=== PATIENT | female | born 1935 | race Caucasian/White ===

== ENCOUNTER 2016-09-12 10:44 | Observation (INO) | payer OTHER ==
--- NOTE | 2016-09-12 11:34 | PDOC ---
History of Present Illness - General History Source: Patient Exam Limitations: No Limitations - History of Present Illness Initial Comments: 09/12/16 11:53 The patient is a 81 year old female, resident of [facility], with a significant past medical history of COPD, former smoker, hypertension, diabetes , and anxiety, who presents to the ER with shortness of breath. As per patient s son, patient has frequently been have anxiety attacks. He states that Dr. Schmid referred them to the ER for admission. Patient cannot attribute a particular reason for the anxiety. Denies being on home oxygen, chest pain, fever, chills, cough, nausea, vomiting, or diarrhea. PCP: Dr. Schmid <Madyson Jones - Last Filed: 09/12/16 14:15> <Jonathan Gomez - Last Filed: 09/12/16 15:53> - General Chief Complaint: Shortness of Breath Stated Complaint: SENT BY PCP FOR ADMISSION NIH Stroke Scale - Last Known Well Date/Time & Onset Date Last Known Well: 09/12/16 Time Last Known Well: 14:00 - Initial Evaluation Level of consciousness: Alert Ask patient the month and their age: Answers one correctly Ask patient to open & close eyes; make fist and let go: Obeys both correctly Best gaze (horizontal eye movement): Normal Visual field testing: No visual field loss Facial paresis (Show teeth/raise eyebrows/close eyes tight): Normal symmetrical movement Motor Function: Left Arm: Normal Motor Function: Right Arm: Normal (extends arm 90 (or 45) degrees for 10 seconds without drift Motor Function: Left Leg: Normal (extends leg 30 degrees for 5 seconds without drift) Motor Function: Right Leg: Normal (extends leg 30 degrees for 5 seconds without drift) Limb Ataxia: No ataxia Sensory(Use pinprick test arms,legs,trunk,face/side to side): Normal Best language (Describe picture, name items, read sentences): No Aphasia Dysarthria (read several words): Mild to moderate slurring of words Extinction and Inattention: No abnormality - Total Score NIH Stroke Scale Score: 2 <Jonathan Gomez - Last Filed: 09/12/16 15:53> tPA Exclusion Checklist 0-3hr - Time Elapsed Date last known well: 09/12/16 Time last known well: 14:00 Elaspsed time: Day(s) and 1 Hour(s) and 51 Minutes - Thrombolytic Therapy Candidate Is the patient eligible for Thrombolytic Therapy?: Yes - Exclusion Criteria 0-3hr SBP greater than 185 or DBP greater than 110mmHg despite tx: No Recent IC/spinal surgery,head trauma or stroke w/in last 3mo: No Hx of previous IC hemorrhage, IC neoplasm, AVM or aneurysm: No Active internal bleeding: No Blding diathesis(low plt ct, inc PTT,INR>1.7 or use of NOAC): No Symptoms suggest subarachnoid hemorrhage: No CT demonstrates multilobar infarct(>1/3 cerebral hemiphere): No Arterial puncture at noncompressible site in previous 7 days: No Blood glucose concentration less than 50mg/dL (2.7mmol/L): No - Relative Exclusion Criteria 0-3h Life expectancy <1yr/severe co-morbid illness/PERIANESTHESIA RN on admit: No : No Patient/family refused: No Rapid improvement: Yes Stroke severity too mild: Yes Recent acute CT (w/in previous 3 months): No Seizure at onset with postictal residual neuro impairments: No Major surgery or serious trauma w/in previous 14 days: No Recent GI or hemorrhage (w/in previous 21 days): No - Ineligibility reason(s) Reasons No tPA given: See reason(s) noted above (symptoms lasted about 1 hour, less than [address] is negative. Back to baseline.) <Jonathan Gomez - Last Filed: 09/12/16 15:53> Past History <Madyson Jones - Last Filed: 09/12/16 14:15> - Past Medical History Anemia: No Asthma: No Cancer: No Cardiac Disorders: Yes (SOB) CVA: No COPD: Yes (USES BI PAP MACHINE) CHF: No Dementia: No Diabetes: Yes (IDDM) GI Disorders: Yes (GERD) Disorders: Yes (STRESS INCONTINENCE) HTN: Yes Hypercholesterolemia: No Liver Disease: No Psychiatric Problems: Yes (ANXIETY DISORDER) Suicide Attempt (Hx): No Seizures: No Thyroid Disease: Yes (HYPO) - Surgical History Abdominal Surgery: Yes (COLON SX x 2) Appendectomy: Yes Cardiac Surgery: No Cholecystectomy: No Lung Surgery: No Neurologic Surgery: No Orthopedic Surgery: Yes (R knee Sx) - Immunization History Td Vaccination: Yes Immunization Up to Date: Yes - Psycho/Social/Smoking Cessation Hx Anxiety: Yes Suicidal Ideation: No Smoking Status: Yes Smoking History: Never smoked Have you smoked in the past 12 months: No Number of Cigarettes Smoked Daily: 0 If you are a former smoker, when did you quit?: 04/25/2011 Information on smoking cessation initiated: No 'Breaking Loose' booklet given: 02/18/15 Hx Alcohol Use: No Drug/Substance Use Hx: No Substance Use Type: None Hx Substance Use Treatment: No <Jonathan Gomez - Last Filed: 09/12/16 15:53> - Past Medical History Allergies/Adverse Reactions: Allergies Allergy/AdvReac Type Severity Reaction Status Date / Time levofloxacin [From Levaquin] Allergy Intermediate Rash Verified 09/12/16 10:54 Penicillins Allergy Mild Verified 09/12/16 10:54 Home Medications: Ambulatory Orders Aripiprazole [Abilify -] 2 mg PO DAILY 12/17/15 Buspirone HCl [Buspar -] 10 mg PO TID 12/17/15 Cholecalciferol (Vitamin D3) [Vitamin D3] 1,000 unit PO DAILY 12/17/15 Insulin (Levemir) [Levemir Vial] 24 unit SQ DAILY 12/17/15 Levothyroxine [Synthroid -] 25 mcg PO DAILY 12/17/15 Melatonin [Melatin] 3 mg PO HS 12/17/15 Multivitamin [Poly-Vitamin] 1 each PO DAILY 12/17/15 Oxybutynin Chloride [Ditropan -] 5 mg PO DAILY 12/17/15 Ranolazine [Ranexa] 500 mg PO BID 12/17/15 Simvastatin [Zocor -] 10 mg PO HS 12/17/15 Albuterol 0.083% Nebulizer Tresa [Ventolin 0.083% Nebulizer Soln -] 1 amp NEB Q4H PRN #0 amp 12/20/15 Alprazolam [Xanax] 0.25 mg PO Q8H PRN #30 tablet MDD 3 12/20/15 Meclizine HCl [Antivert -] 25 mg PO Q6HPO PRN #0 tablet 12/20/15 Omeprazole [Prilosec] 20 mg PO DAILY 01/04/16 Insulin Sliding Scale [Novolog Vial Sliding Scale -] 0 units SQ TIDAC 09/12/16 Mirabegron [Myrbetriq] 25 mg PO DAILY 09/12/16 Paroxetine HCl [Paxil -] 30 mg PO DAILY 09/12/16 Review of Systems - Review of Systems Able to Perform ROS?: Yes Comments:: 09/12/16 11:54 CONSTITUTIONAL: Absent: fever, no chills, no fatigue EYES: Absent: visual changes ENT: Absent: ear pain, no sore throat CARDIOVASCULAR: Absent: chest pain, no palpitations RESPIRATORY: Present: shortness of breath Absent: cough GI: Absent: abdominal pain, no nausea, no vomiting, no constipation, no diarrhea GENITOURINARY: Absent: dysuria, no frequency, no hematuria MUSCULOSKELETAL: Absent: back pain, no arthralgia, no myalgia SKIN: Absent: rash NEURO: Absent: headache <Uts,Madyson - Last Filed: 09/12/16 14:15> *Physical Exam - Vital Signs Last Vital Signs Temp Pulse Resp BP Pulse Ox 97.9 F 75 18 122/74 99 09/12/16 10:53 09/12/16 10:53 09/12/16 10:53 09/12/16 10:53 09/12/16 10:53 - Physical Exam Comments: 09/12/16 11:55 GENERAL: Well-appearing, well-nourished. No apparent distress. HEENT: Normocephalic, atraumatic. PERRL, EOM intact. CARDIOVASCULAR: Normal S1, S2. Regular rate and rhythm. PULMONARY: Clear to auscultation bilaterally. ABDOMEN: Soft, non-distended, non-tender. EXTREMITIES: Normal ROM in all four extremities. No gross deformities. SKIN: Warm, dry. No rash NEUROLOGICAL: No focal neurological deficits. <Uts,Madyson - Last Filed: 09/12/16 14:15> - Vital Signs Last Vital Signs Temp Pulse Resp BP Pulse Ox 97.9 F 75 18 122/74 99 09/12/16 10:53 09/12/16 10:53 09/12/16 10:53 09/12/16 10:53 09/12/16 10:53 <Jonathan Gomez - Last Filed: 09/12/16 15:53> ED Treatment Course - LABORATORY CBC & Chemistry Diagram: 09/12/16 11:55 09/12/16 11:55 <ParadiseevgenyMadyson - Last Filed: 09/12/16 14:15> - LABORATORY CBC & Chemistry Diagram: 09/12/16 11:55 09/12/16 11:55 <Jonathan Gomez - Last Filed: 09/12/16 15:53> Medical Decision Making - Medical Decision Making 09/12/16 13:[address] Osorio (covering for Dr. Schmid) 09/12/16 14:[address] Alcala who will see patient in the ER <Madyson Jones - Last Filed: 09/12/16 14:15> *DC/Admit/Observation/Transfer - Attestations Scribe Attestion: 09/12/16 11:55 Documentation prepared by Madyson Jones, acting as medical physicist for Jonathan Gomez MD, MD/DO. <KarenMadyson - Last Filed: 09/12/16 14:15> - Discharge Dispostion Admit: Yes <Jonathan Gomez - Last Filed: 09/12/16 15:53> Diagnosis at time of Disposition: COPD (chronic obstructive pulmonary disease), Acute confusion, TIA (transient ischemic attack) - Discharge Dispostion Condition at time of disposition: Stable - Referrals Referrals: Bryce Schmid MD [Primary Care Provider] -
[2016-09-12] MEDS ORDERED: LORAZEPAM CARPU-JECT 2 MG/ML DISP.SYRIN IVPUSH ONE (11:52)
[2016-09-12] MEDS ORDERED: LORAZEPAM CARPU-JECT 2 MG/ML DISP.SYRIN ONE (12:12)
[2016-09-12 12:20] LABS: BASOPHIL 0.6 % (0-2.0); EOSINOPHIL 1.2 % (0-4.5); MCH 28.2 pg (25.7-33.7); MCHC 32.7 g/dl (32.0-36.0); MEAN CELL VOLUME 86.1 fl (80-96); MEAN PLT VOLUME 7.4 fl (7.5-11.1); NEUTROPHILS 61.3 % (42.8-82.8); PLATELET COUNT 271 K/MM3 (134-434); RDW 15.1 % (11.6-15.6)
[2016-09-12 12:43] LABS: ALBUMIN 3.7 g/dl (3.4-5.0); ANION GAP 9 (8-16); BILIRUBIN,TOTAL 0.5 mg/dL (0.2-1.0); CO2 23 mmol/L (21-32); CREATININE 1.6 mg/dL (0.55-1.02); GLUCOSE,RANDOM 172 mg/dL (74-106); SGOT/AST 15 U/L (15-37); SGPT/ALT 17 U/L (12-78); TOT PROT 7.4 g/dl (6.4-8.2)
[2016-09-12 12:52] LABS: ALK PHOS 103 U/L (45-117); THYROID STIMULATING HORMONE 1.05 uIU/ml (0.358-3.74); TROPONIN I < 0.02 ng/ml (0.00-0.05)
[2016-09-12 13:33] LABS: ARTERIAL BLD GAS O2 SATURATION 94.5 % (90-98.9); ARTERIAL BLOOD GAS BASE EXCESS -3.6 meq/l (-2-2); ARTERIAL BLOOD GAS PO2 86.3 mmHg (70-100); ARTERIAL BLOOD GAS pH 7.36 (7.35-7.45)
[2016-09-12 13:43] LABS: ALLENS TEST POSITIVE
[2016-09-12 13:44] LABS: ART PUNCT SITE RIGHT RADIAL; LPM/O2% 21%; PT. ON O2? NO; TYPE OF O2 ROOM AIR
[2016-09-12] MEDS ORDERED: ALBUTEROL SO4 0.083% IH SOL 2.5 MG/3 ML VIAL.NEB. NEB PRN (16:35)
[2016-09-12] MEDS ORDERED: MECLIZINE HCL 25 MG TABLET (FP) PO PRN (16:35)
--- NOTE | 2016-09-12 17:26 | HP ---
Admitting History and Physical - Admission History of Present Illness: 81 year old female, resident of [facility], with a significant past medical history of COPD, former smoker, hypertension, diabetes, and anxiety was sent to the ED by Primary Care physician (Dr. Schmid) for nervousness. At time of this evaluation pt states that she has dizziness and weakness of her legs both of which she states is chronic. She has no pain, no SOB, and no other complaints. She states that her memory is bad and she does not remember why or how she ended up at the hospital. She is conversant, oriented to place, and very pleasant (laughing and smiling) - Past Medical History DETECTIVE PRECINCT: Yes: Dementia, Other (ANXIETY DISORDER) Cardiovascular: Yes: HTN Pulmonary: Yes: Asthma, COPD, Other (CLAUDIA) Gastrointestinal: Yes: Other (rectal prolapse) Renal/: Yes: Neurogenic Bladder Heme/Onc: Yes: Anemia Psych: Yes: Anxiety, Depression Musculoskeletal: Yes: Chronic low back pain, Bursitis, Osteoarthritis Rheumatology: Yes: Fibromyalgia Endocrine: Yes: Diabetes Mellitus - Smoking History Smoking history: Never smoked Have you smoked in the past 12 months: No Aproximately how many cigarettes per day: 0 If you are a former smoker, when did you quit?: 04/25/2011 - Alcohol/Substance Use Hx Alcohol Use: No - Social History ADL: Independent Occupation: former hairdresser, pet groomer History of Recent Travel: No Home Medications - Allergies Allergies/Adverse Reactions: Allergies Allergy/AdvReac Type Severity Reaction Status Date / Time levofloxacin [From Levaquin] Allergy Intermediate Rash Verified 09/12/16 10:54 Penicillins Allergy Mild Verified 09/12/16 10:54 - Home Medications Home Medications: Ambulatory Orders Aripiprazole [Abilify -] 2 mg PO DAILY 12/17/15 Buspirone HCl [Buspar -] 10 mg PO TID 12/17/15 Cholecalciferol (Vitamin D3) [Vitamin D3] 1,000 unit PO DAILY 12/17/15 Insulin (Levemir) [Levemir Vial] 24 unit SQ DAILY 12/17/15 Levothyroxine [Synthroid -] 25 mcg PO DAILY 12/17/15 Melatonin [Melatin] 3 mg PO HS 12/17/15 Multivitamin [Poly-Vitamin] 1 each PO DAILY 12/17/15 Oxybutynin Chloride [Ditropan -] 5 mg PO DAILY 12/17/15 Ranolazine [Ranexa] 500 mg PO BID 12/17/15 Simvastatin [Zocor -] 10 mg PO HS 12/17/15 Albuterol 0.083% Nebulizer Tresa [Ventolin 0.083% Nebulizer Soln -] 1 amp NEB Q4H PRN #0 amp 12/20/15 Alprazolam [Xanax] 0.25 mg PO Q8H PRN #30 tablet MDD 3 12/20/15 Meclizine HCl [Antivert -] 25 mg PO Q6HPO PRN #0 tablet 12/20/15 Omeprazole [Prilosec] 20 mg PO DAILY 01/04/16 Insulin Sliding Scale [Novolog Vial Sliding Scale -] 0 units SQ TIDAC 09/12/16 Mirabegron [Myrbetriq] 25 mg PO DAILY 09/12/16 Paroxetine HCl [Paxil -] 30 mg PO DAILY 09/12/16 Family Disease History - Family Disease History Family Disease History: Diabetes: Grandparent, Heart Disease: Father (colon), Mother, Brother, CA: Father Review of Systems - Review of Systems Constitutional: reports: Weakness Eyes: denies: No Symptoms, Blind Spots, Blurred Vision, Double Vision, Eye Pain , Floaters, Photophobia, Recent Change in Vision, Other HENT: denies: No Symptoms, Difficult Swallowing, Ear Discharge, Ear Pain, Epistaxis, Gingival Bleeding, Hearing Loss, Mouth Swelling, Nasal Congestion, Ocular Prosthesis, Throat Pain, Toothache, Ringing in Ears, Other Neck: denies: No Symptoms, Decreased ROM, Lumps, Pain on Movement, Stiffness, Swollen Glands, Tenderness, Other Cardiovascular: denies: No Symptoms, Chest Pain, Edema, Palpitations, Shortness of Breath, Other Respiratory: denies: No Symptoms, Cough, Exercise Intolerance, Hemoptysis, Orthopnea, PND, Snoring, SOB, SOB on Exertion, Wheezing, Other Gastrointestinal: denies: No Symptoms, Abdominal Pain, Bloating, Constipation, Diarrhea, Dysphagia, Indigestion, Melena, Nausea, Rectal Bleeding, Vomiting, Vomiting Blood, Other Genitourinary: denies: No Symptoms, Burning, Discharge, Dysuria, Flank Pain, Frequency, Hematuria, Incontinence, Lesions, Menses, Pain, Testicular Mass, Testicular Pain, Testicular Swelling, Urgency, Vaginal Bleeding, Other Breasts: denies: No Symptoms Reported, See HPI, Breast Implants, Discharge from Nipple, Lumps, Pain, Skin Changes, Other Musculoskeletal: reports: Joint Pain (right shoulder) Integumentary: denies: No Symptoms, Blister, Bruising, Change in Color, Eczema, Erythema, Incision, Lesions, Lump, Pallor, Pruritis, Rash, Wound, Other Neurological: reports: Dizziness, Unsteady Gait, Weakness Hematology/Lymphatic: denies: No Symptoms, Easily Bruised, Excessive Bleeding, Swollen Glands, Other Psychiatric: denies: No Symptoms, Altered Sleep Pattern, Anxiety, Depression, Hallucinations, Panic, Paranoia, Suicidal, Other Physical Examination Vital Signs: Vital Signs Temperature 97.9 F 09/12/16 10:53 Pulse Rate 79 09/12/16 15:40 Respiratory Rate 18 09/12/16 15:40 Blood Pressure 120/70 09/12/16 15:40 O2 Sat by Pulse Oximetry (%) 100 09/12/16 15:40 Constitutional: Yes: Well Nourished, No Distress, Calm Eyes: Yes: WNL, Conjunctiva Clear, EOM Intact HENT: Yes: WNL, Atraumatic, Normocephalic Neck: Yes: WNL, Supple, Trachea Midline Cardiovascular: Yes: WNL, Regular Rate and Rhythm Respiratory: Yes: WNL, Regular, CTA Bilaterally Gastrointestinal: Yes: WNL, Normal Bowel Sounds Musculoskeletal: Yes: WNL Extremities: Yes: WNL Edema: No Integumentary: Yes: WNL Neurological: Yes: WNL, Alert, Oriented ...Motor Strength: WNL Psychiatric: Yes: WNL Labs: CBC, BMP 09/12/16 11:55 09/12/16 11:55 Assessment/Plan 81 year old female, resident of [facility], with a significant past medical history of COPD, former smoker, hypertension, diabetes, and anxiety was sent to the ED by Primary Care physician (Dr. Schmid) for nervousness -vital signs and labs all WNL -creat of 1.6 is similar to pt's baseline -CT head negative for acute changes -EKG shows no ischemic changes and no malignant arrythmias -pt was treated with 1mg ativan IV by ED physician earlier today which is a possible reason why pt feels drousy at this time -admit to observation -to go to Primary Care Physician's service in the AM for further/continued management Visit type - Emergency Visit Emergency Visit: Yes Care time: The patient presented to the Emergency Department on the above date and was hospitalized for further evaluation of their emergent condition. - New Patient This patient is new to me today: Yes Date on this admission: 09/12/16 - Critical Care Critical Care patient: No
[2016-09-12] MEDS ORDERED: ALPRAZolam 0.25 MG TABLET ONE (22:17)
[2016-09-12] MEDS ORDERED: busPIRone HCL 5 MG TABLET ONE (22:18)
[2016-09-12] MEDS: ALPRAZolam 0.25 MG TABLET PO PRN (22:28)
[2016-09-12] MEDS: busPIRone HCL 10 MG TABLET (FP) PO SCH (22:28)
--- NOTE | 2016-09-12 23:42 | EKG ---
Test Reason : Blood Pressure : / mmHG Vent. Rate : 066 BPM Atrial Rate : 066 BPM P-R Int : 126 ms QRS Dur : 098 ms QT Int : 436 ms P-R-T Axes : 044 026 054 degrees QTc Int : 457 ms NORMAL SINUS RHYTHM LOW VOLTAGE QRS INCOMPLETE RIGHT BUNDLE BRANCH BLOCK BORDERLINE ECG WHEN COMPARED WITH ECG OF 04-JAN-2016 04:53, NO SIGNIFICANT CHANGE WAS FOUND Confirmed by CARI SINGH, ERICH ([id number]) on 09/12/2016 11:41:58 PM Referred By: Confirmed By:ERICH ALCALA MD
[2016-09-13] MEDS: RANOLAZINE E.R. 500 MG TABLET (FP) PO SCH ×3 (00:46→22:46)
[2016-09-13 01:29] VITALS: BMI 32.3
[2016-09-13] MEDS: INSULIN SLIDING SCALE (NOVOLOG) 1 VIAL SQ SCH ×3 (06:02→18:11)
[2016-09-13] MEDS: LEVOTHYROXINE NA 25 MCG TABLET (FP) PO SCH (06:11)
[2016-09-13] MEDS: busPIRone HCL 10 MG TABLET (FP) PO SCH ×3 (06:11→22:46)
[2016-09-13] MEDS ORDERED: PARoxetine HCL 10 MG TABLET (FP) PO SCH (10:00)
[2016-09-13] MEDS ORDERED: INSULIN DETEMIR 100 UNITS/ML MDV SQ SCH (10:00)
[2016-09-13] MEDS ORDERED: OXYBUTYNIN CHLORIDE 5 MG TABLET PO SCH (10:00)
[2016-09-13] MEDS ORDERED: PT OWN MED DRAWER 7, Y5N ONE ×2 (10:53→22:41)
[2016-09-13] MEDS: PAROXETINE HCL 20 MG, PAROXETINE HCL 10 MG PO SCH (11:35)
[2016-09-13] MEDS: ARIPiprazole 2 MG TABLET PO SCH (11:36)
--- NOTE | 2016-09-13 12:57 | PN ---
Progress Note (short form) - Note Progress Note: PULMONARY CONSULTATION DICTATED 09/13/16 IMP DYSPNEA SECONDARY TO ANXIETY COPD CONFUSION DM HTN CLAUDIA ACUTE ON CHRONIC KIDNEY DISEASE PLAN INHALED BRONCHODILATORS ANTI-ANXIETY MEDS O2 PRN MONITOR LYTES,RENAL FUNCTION MONITOR BP MONITOR BLOOD SUGARS DR LEON Problem List - Problems (1) Acute confusion Code(s): R41.0 - DISORIENTATION, UNSPECIFIED (2) COPD (chronic obstructive pulmonary disease) Code(s): J44.9 - CHRONIC OBSTRUCTIVE PULMONARY DISEASE, UNSPECIFIED (3) Fibromyalgia Code(s): M79.7 - FIBROMYALGIA (4) Obesity (BMI 30.0-34.9) Code(s): E66.9 - OBESITY, UNSPECIFIED (5) Shortness of breath Code(s): R06.02 - SHORTNESS OF BREATH (6) Anxiety Code(s): F41.9 - ANXIETY DISORDER, UNSPECIFIED (7) Depression Code(s): F32.9 - MAJOR DEPRESSIVE DISORDER, SINGLE EPISODE, UNSPECIFIED (8) Diabetes mellitus Code(s): E11.9 - TYPE 2 DIABETES MELLITUS WITHOUT COMPLICATIONS Qualifiers: Diabetes mellitus type: type 2 Diabetes mellitus complication status: with ketoacidosis Diabetes mellitus complication detail: without coma
[2016-09-13] MEDS: ALPRAZolam 0.25 MG TABLET PO PRN (14:43)
--- NOTE | 2016-09-13 15:16 | CONS ---
DATE OF CONSULTATION: 09/13/2016 REFERRING PHYSICIAN: Rodrigo Ferrera MD The patient is a 81-year-old white female, resident of [facility], known to me from previous office visit as well as hospitalization, with past medical history of COPD, history of tobacco use, hypertension, anxiety, diabetes, transferred to [facility] secondary to increasing shortness of breath and feeling very nervous. In the emergency room, the patient was noted to be short of breath and dyspneic, also she was very anxious. She was administered Ativan. Apparently after the administration of Ativan, she started developing increasing confusion as well as disorientation. She was admitted for further evaluation. She denies any chest pain, palpitations. Denied any nausea, vomiting or diaphoresis. She denies any cough or hemoptysis. Past medical history, again, includes COPD, obstructive sleep apnea, hypertension, anxiety, rectal prolapse, neurogenic bladder, anemia, chronic back pain, bursitis, osteoarthritis, fibromyalgia, and anemia. SOCIAL HISTORY: Tobacco use, quit approximately 15 years ago. No occupational exposures. Former hairdresser. Current medications include Antivert, Abilify, BuSpar, Xanax, albuterol, Ranexa, Ditropan, NovoLog, Levemir, Synthroid, paroxetine. REVIEW OF SYSTEMS: No orthopnea, no PND. Positive mild dyspnea. No chest pain. No palpitation. No nausea, no vomiting. No GI complaints. No lower extremity edema. PHYSICAL EXAMINATION: General: The patient is well developed, well nourished, awake, alert, comfortable, in no acute distress. Vital Signs: She is currently afebrile. Blood pressure 121/53. Respiratory rate is 20. O2 saturation is 97% on room air. HEENT: Normocephalic, atraumatic. Neck: Supple. Heart: Regular, S1, S2. Chest: Clear. Abdomen: Soft. Bowel sounds positive. Extremities: No cyanosis, edema. LABORATORIES: WBC is 8, hemoglobin 10.9, hematocrit 33.5, platelet count 271,000. D-dimer is 337. Blood gas: pH of 7.36, pCO2 of 38, pO2 of 86, bicarbonate 21, saturation of 94.5. Chest x-ray reveals no infiltrates, no effusion. CT scan of the head normal. IMPRESSION: 1. Dyspnea, most likely secondary to anxiety. 2. Chronic obstructive pulmonary disease, clinically stable. She is not in acute exacerbation. 3. Diabetes mellitus. 4. Hypertension. 5. Obstructive sleep apnea, not on CPAP. PLAN: Inhaled bronchodilators, antianxiety medications, monitor blood pressure, monitor blood sugars. DONN LEON M.D. [id number]
[2016-09-13] MEDS ORDERED: ATORVASTATIN CA 10 MG TABLET (FP) PO SCH (22:45)
[2016-09-13] MEDS: PANTOPRAZOLE 20 MG TABLET (FP) PO SCH (22:46)
--- NOTE | 2016-09-13 23:45 | PN ---
Progress Note (short form) - Note Progress Note: No specific complaints today Admits to a multitude of issues if asked like head ache dizziness numbness in the hands, Chest pain etc etc O/E Is forgetful and appears anxious Heart regular Lungs clear Abd soft Ext no edema Vital Signs Period Temp Pulse Resp BP Sys/Liu Pulse Ox Last 24 Hr 97.4 F-98.4 F 74-87 18-24 105-122/51-83 96-98 Current Medications Albuterol Sulfate (Ventolin 0.083% Nebulizer Soln -) 1 amp NEB Q4H PRN PRN Reason: SHORT OF BREATH/WHEEZING Alprazolam (Xanax -) 0.25 mg PO Q8H PRN PRN Reason: ANXIETY Last Admin: 09/13/16 14:43 Dose: 0.25 mg Aripiprazole (Abilify) 2 mg PO DAILY [facility] Last Admin: 09/13/16 11:36 Dose: 2 mg Atorvastatin Calcium (Lipitor -) 10 mg PO [facility] Last Admin: 09/13/16 22:46 Dose: 10 mg Buspirone HCl (Buspar -) 10 mg PO TID [facility] Last Admin: 09/13/16 22:46 Dose: 10 mg Insulin Aspart (Novolog Vial Sliding Scale -) 1 vial SQ TIDAC [facility] PRN Reason: Protocol Last Admin: 09/13/16 18:11 Dose: Not Given Insulin Detemir (Levemir Vial) 24 units SQ [facility] Levothyroxine Sodium (Synthroid -) 25 mcg PO ACBK [facility] Last Admin: 09/13/16 06:11 Dose: 25 mcg Myrbetriq(Mirabegron ) [id number] Med 1 each PO DAILY [facility] Pantoprazole Sodium (Protonix -) 20 mg PO BID [facility] Last Admin: 09/13/16 22:46 Dose: 20 mg Paroxetine HCl 20 mg/ (Paroxetine HCl 10 mg) 30 mg PO DAILY [facility] Last Admin: 09/13/16 11:35 Dose: 30 mg Ranolazine (Ranexa -) 500 mg PO BID [facility] Last Admin: 09/13/16 22:46 Dose: 500 mg Laboratory Results - last 24 hr 09/13/16 09/13/16 09/13/16 05:23 11:55 17:50 POC Glucometer 127 236 149 09/13/16 21:37 POC Glucometer 189 A&P 1.Dementia. Needs OP eval and treatment 2.Anxiety Cont present care. Most of the complaints she admits to is part of anxiety and dementia and is not associated with TIA 3.DM Cont preent care 4.Urge incontinence Cont present care.
[2016-09-14] MEDS: INSULIN SLIDING SCALE (NOVOLOG) 1 VIAL SQ SCH ×2 (06:18→11:13)
[2016-09-14] MEDS ORDERED: PT OWN MED DRAWER 7, Y5N ONE ×4 (06:19→14:42)
[2016-09-14] MEDS: LEVOTHYROXINE NA 25 MCG TABLET (FP) PO SCH (06:21)
[2016-09-14] MEDS: busPIRone HCL 10 MG TABLET (FP) PO SCH ×2 (06:21→14:43)
[2016-09-14] MEDS: ARIPiprazole 2 MG TABLET PO SCH (09:45)
[2016-09-14] MEDS: PAROXETINE HCL 20 MG, PAROXETINE HCL 10 MG PO SCH (09:46)
[2016-09-14] MEDS: RANOLAZINE E.R. 500 MG TABLET (FP) PO SCH (09:47)
[2016-09-14] MEDS: PANTOPRAZOLE 20 MG TABLET (FP) PO SCH (09:47)
[2016-09-14] MEDS ORDERED: MYRBETRIQ 25 MG PO SCH (10:00)
--- NOTE | 2016-09-14 12:44 | PN ---
Progress Note, Physician History of Present Illness: PULMONARY ALERT,NAD,-SOB,-COUGH,-CP - Current Medication List Current Medications: Active Medications Albuterol Sulfate (Ventolin 0.083% Nebulizer Soln -) 1 amp NEB Q4H PRN PRN Reason: SHORT OF BREATH/WHEEZING Alprazolam (Xanax -) 0.25 mg PO Q8H PRN PRN Reason: ANXIETY Last Admin: 09/13/16 14:43 Dose: 0.25 mg Aripiprazole (Abilify) 2 mg PO DAILY [facility] Last Admin: 09/14/16 09:45 Dose: 2 mg Atorvastatin Calcium (Lipitor -) 10 mg PO HS [facility] Last Admin: 09/13/16 22:46 Dose: 10 mg Buspirone HCl (Buspar -) 10 mg PO TID [facility] Last Admin: 09/14/16 06:21 Dose: 10 mg Insulin Aspart (Novolog Vial Sliding Scale -) 1 vial SQ TIDAC [facility] PRN Reason: Protocol Last Admin: 09/14/16 11:13 Dose: 4 units Insulin Detemir (Levemir Vial) 24 units SQ [facility] Levothyroxine Sodium (Synthroid -) 25 mcg PO ACBK [facility] Last Admin: 09/14/16 06:21 Dose: 25 mcg Myrbetriq(Mirabegron ) 41eq-Ppo-Kjrjirify Med 1 each PO DAILY [facility] Last Admin: 09/14/16 09:45 Dose: 1 each Pantoprazole Sodium (Protonix -) 20 mg PO BID [facility] Last Admin: 09/14/16 09:47 Dose: 20 mg Paroxetine HCl 20 mg/ (Paroxetine HCl 10 mg) 30 mg PO DAILY [facility] Last Admin: 09/14/16 09:46 Dose: 30 mg Ranolazine (Ranexa -) 500 mg PO BID [facility] Last Admin: 09/14/16 09:47 Dose: 500 mg - Objective Vital Signs: Vital Signs Temperature 97.9 F 09/14/16 10:00 Pulse Rate 65 09/14/16 10:00 Respiratory Rate 20 09/14/16 10:00 Blood Pressure 113/42 09/14/16 10:00 O2 Sat by Pulse Oximetry (%) 98 09/13/16 21:00 Constitutional: Yes: Well Nourished, Calm Eyes: Yes: WNL HENT: Yes: WNL Neck: Yes: WNL Cardiovascular: Yes: Regular Rate and Rhythm, S1, S2 Respiratory: Yes: CTA Bilaterally Gastrointestinal: Yes: Normal Bowel Sounds, Soft Extremities: Yes: WNL Edema: No Problem List - Problems (1) Acute confusion Code(s): R41.0 - DISORIENTATION, UNSPECIFIED (2) COPD (chronic obstructive pulmonary disease) Code(s): J44.9 - CHRONIC OBSTRUCTIVE PULMONARY DISEASE, UNSPECIFIED (3) Fibromyalgia Code(s): M79.7 - FIBROMYALGIA (4) Obesity (BMI 30.0-34.9) Code(s): E66.9 - OBESITY, UNSPECIFIED (5) Shortness of breath Code(s): R06.02 - SHORTNESS OF BREATH (6) Anxiety Code(s): F41.9 - ANXIETY DISORDER, UNSPECIFIED (7) Depression Code(s): F32.9 - MAJOR DEPRESSIVE DISORDER, SINGLE EPISODE, UNSPECIFIED (8) Diabetes mellitus Code(s): E11.9 - TYPE 2 DIABETES MELLITUS WITHOUT COMPLICATIONS Qualifiers: Diabetes mellitus type: type 2 Diabetes mellitus complication status: with ketoacidosis Diabetes mellitus complication detail: without coma Assessment/Plan IMP DYSPNEA SECONDARY TO ANXIETY COPD STABLE CONFUSION IMPROVED BACK TO BASELINE DM HTN CLAUDIA ACUTE ON CHRONIC KIDNEY DISEASE PLAN INHALED BRONCHODILATORS ANTI-ANXIETY MEDS O2 PRN NO OBJECTION TO DISCHARGE FROM PULMONARY [facility] DR LEON Problem List - Problems (1) Acute confusion Code(s): R41.0 - DISORIENTATION, UNSPECIFIED (2) COPD (chronic obstructive pulmonary disease) Code(s): J44.9 - CHRONIC OBSTRUCTIVE PULMONARY DISEASE, UNSPECIFIED (3) Fibromyalgia Code(s): M79.7 - FIBROMYALGIA (4) Obesity (BMI 30.0-34.9) Code(s): E66.9 - OBESITY, UNSPECIFIED (5) Shortness of breath Code(s): R06.02 - SHORTNESS OF BREATH (6) Anxiety Code(s): F41.9 - ANXIETY DISORDER, UNSPECIFIED (7) Depression Code(s): F32.9 - MAJOR DEPRESSIVE DISORDER, SINGLE EPISODE, UNSPECIFIED (8) Diabetes mellitus Code(s): E11.9 - TYPE 2 DIABETES MELLITUS WITHOUT COMPLICATIONS Qualifiers: Diabetes mellitus type: type 2 Diabetes mellitus complication status: with ketoacidosis Diabetes mellitus complication detail: without coma
--- NOTE | 2016-09-14 12:47 | DS ---
Physical Examination Vital Signs: Vital Signs Temperature 97.9 F 09/14/16 10:00 Pulse Rate 65 09/14/16 10:00 Respiratory Rate 20 09/14/16 10:00 Blood Pressure 113/42 09/14/16 10:00 O2 Sat by Pulse Oximetry (%) 98 09/13/16 21:00 Discharge Summary Reason For Visit: COPD ACUTE CONFUSION TIA Current Active Problems Acute confusion (Acute) COPD (chronic obstructive pulmonary disease) (Acute) Fibromyalgia (Acute) Obesity (BMI 30.0-34.9) (Acute) Shortness of breath (Acute) TIA (transient ischemic attack) (Acute) Condition: Stable - Instructions Diet, Activity, Other Instructions: resume previous diet and activity Referrals: Bryce Schmid MD [Primary Care Provider] - Bruno Alcala MD [Staff Physician] - Disposition: ASSISTED FACILITY - Home Medications Comprehensive Discharge Medication List: Ambulatory Orders Aripiprazole [Abilify -] 2 mg PO DAILY 12/17/15 Buspirone HCl [Buspar -] 10 mg PO TID 12/17/15 Insulin (Levemir) [Levemir Vial] 24 unit SQ HS 12/17/15 Levothyroxine [Synthroid -] 25 mcg PO DAILY 12/17/15 Ranolazine [Ranexa] 500 mg PO BID 12/17/15 Simvastatin [Zocor -] 10 mg PO HS 12/17/15 Albuterol 0.083% Nebulizer Tresa [Ventolin 0.083% Nebulizer Soln -] 1 amp NEB Q4H PRN #0 amp 12/20/15 Omeprazole [Prilosec] 20 mg PO BID 01/04/16 Insulin Sliding Scale [Novolog Vial Sliding Scale -] 5 units SQ TIDAC 09/12/16 Mirabegron [Myrbetriq] 25 mg PO DAILY 09/12/16 Paroxetine HCl [Paxil -] 30 mg PO DAILY 09/12/16 Alprazolam [Xanax] 0.25 mg PO Q8H PRN #0 tablet MDD 1mg 09/14/16 Meclizine HCl [Antivert -] 25 mg PO Q6HPO PRN #0 tablet 09/14/16
[2016-09-14 14:34] VITALS: BP 109/60; PULSE 81; TEMP 98.3
[2016-09-14] MEDS: ALPRAZolam 0.25 MG TABLET PO PRN (14:43)
[2016-09-14] MEDS ORDERED: INSULIN DETEMIR 100 UNITS/ML MDV SQ SCH (22:00)
[2016-09-14] MEDS ORDERED: ATORVASTATIN CA 10 MG TABLET (FP) PO SCH (22:00)
== END 2016-09-14 16:35 ==
LOC: JER 10:44 → J4S 15:54 → UNDOADMOB 15:54 → INTOOBSV 23:47 → OBSVTOIN 23:47 → J4S 09-14 12:42
PROVIDERS: ADMIT Internal Medicine; ATTEND Internal Medicine
DX: R06.02 Shortness of breath (principal); M79.7 Fibromyalgia; F41.9 Anxiety disorder, unspecified; E66.9 Obesity, unspecified; Z68.32 Body mass index [BMI] 32.0-32.9, adult; F32.9 Major depressive disorder, single episode, unspecified; E11.9 Type 2 diabetes mellitus without complications; R41.0 Disorientation, unspecified; I12.9 Hypertensive chronic kidney disease with stage 1 through stage 4 chronic kidney disease, or unspecified chronic kidney disease; N18.9 Chronic kidney disease, unspecified; G47.33 Obstructive sleep apnea (adult) (pediatric); J44.9 Chronic obstructive pulmonary disease, unspecified
CPT/HCPCS: 36415; 36600; 70450-TC; 71010-TC; 80053; 82550; 82803; 83880; 84443; 84484; 85025; 85379; 93005; 93010; 99285-25; G0378

== ENCOUNTER 2016-09-30 19:21 | Emergency (ER) | payer OTHER ==
--- NOTE | 2016-09-30 20:00 | PDOC ---
Medical Decision Making - Medical Decision Making 09/30/16 19:59 agree with care from WEIGHT INSPECTOR Devin *DC/Admit/Observation/Transfer Diagnosis at time of Disposition: Head injury, Fall - Discharge Dispostion Disposition: GROUP HOME FACILITY Condition at time of disposition: Fair - Referrals Referrals: Bryce Schmid MD [Primary Care Provider] - - Patient Instructions Additional Instructions: MOTRIN OR TYLENOL FOR PAIN NEEDED. CONTINUE DAILY ACTIVITY TOLERATED. FOLLOW UP WITH YOUR DOCTOR. Print Language: SWEDISH
[2016-09-30 20:03] VITALS: BP 135/74; PULSE 79; TEMP 97.5; BMI 32.4
--- NOTE | 2016-09-30 20:53 | PDOC ---
History of Present Illness - General Chief Complaint: Injury Stated Complaint: FALL Time Seen by Provider: 09/30/16 19:57 History Source: Patient, Fdc Records Exam Limitations: No Limitations - History of Present Illness Initial Comments: 09/30/16 20:48 81yo Female patient from [facility] c/o fall. Patient states while ambulating in [place] with walker, she lost her balance falling backward hitting her head. Neg LOC. + Neck pain, Lt thigh, Head pain. She denies n/v/d, confusion , disorientation, back pain, abd pain, CP, diff breathing, or any other complaints. Associated chronic dizziness and currently on Meclizine. Occurred: reports: this evening Severity: reports: mild Pain Location: reports: head, lower extremity (Lt Hip & Thigh), neck. denies: abdomen, back, pelvis Method of Injury: Yes: fall Modifying Factors: improves with: None Loss of Consciousness: no loss of consciousness Associated Symptoms (Fall): dizziness Past History - Travel Traveled outside of the country in the last 30 days: No Close contact w/someone who was outside of country & ill: No - Past Medical History Allergies/Adverse Reactions: Allergies Allergy/AdvReac Type Severity Reaction Status Date / Time levofloxacin [From Levaquin] Allergy Intermediate Rash Verified 09/30/16 20:03 Penicillins Allergy Mild Verified 09/30/16 20:03 Home Medications: Ambulatory Orders Aripiprazole [Abilify -] 2 mg PO DAILY 12/17/15 Buspirone HCl [Buspar -] 10 mg PO TID 12/17/15 Insulin (Levemir) [Levemir Vial] 24 unit SQ HS 12/17/15 Levothyroxine [Synthroid -] 25 mcg PO DAILY 12/17/15 Ranolazine [Ranexa] 500 mg PO BID 12/17/15 Simvastatin [Zocor -] 10 mg PO HS 12/17/15 Albuterol 0.083% Nebulizer Tresa [Ventolin 0.083% Nebulizer Soln -] 1 amp NEB Q4H PRN #0 amp 12/20/15 Omeprazole [Prilosec] 20 mg PO BID 01/04/16 Insulin Sliding Scale [Novolog Vial Sliding Scale -] 5 units SQ TIDAC 09/12/16 Mirabegron [Myrbetriq] 25 mg PO DAILY 09/12/16 Paroxetine HCl [Paxil -] 30 mg PO DAILY 09/12/16 Alprazolam [Xanax] 0.25 mg PO Q8H PRN #0 tablet MDD 1mg 09/14/16 Meclizine HCl [Antivert -] 25 mg PO Q6HPO PRN #0 tablet 09/14/16 Anemia: No Asthma: No Cancer: No Cardiac Disorders: Yes (SOB) CVA: No COPD: Yes CHF: No Dementia: No Diabetes: Yes (IDDM) GI Disorders: Yes (GERD) Disorders: Yes (STRESS INCONTINENCE) HTN: Yes Hypercholesterolemia: Yes Liver Disease: No Psychiatric Problems: Yes (ANXIETY DISORDER) Suicide Attempt (Hx): No Seizures: No Thyroid Disease: Yes (HYPO) - Surgical History Abdominal Surgery: Yes Appendectomy: Yes Cardiac Surgery: No Cholecystectomy: No Lung Surgery: No Neurologic Surgery: No Orthopedic Surgery: Yes (R knee Sx) - Immunization History Td Vaccination: Yes Immunization Up to Date: Yes - Psycho/Social/Smoking Cessation Hx Anxiety: No Suicidal Ideation: No Smoking Status: Yes Smoking History: Former smoker Have you smoked in the past 12 months: No Number of Cigarettes Smoked Daily: 0 If you are a former smoker, when did you quit?: 2010 Information on smoking cessation initiated: No 'Breaking Loose' booklet given: 02/18/15 Hx Alcohol Use: No Drug/Substance Use Hx: No Substance Use Type: None Hx Substance Use Treatment: No Trauma Specific PMHX - Complaint Specific PMHX Arthritis: No Back Injury: No Neck Injury: Yes Hx Sacro Iliac Joint Dysfunction: No Review of Systems - Review of Systems Able to Perform ROS?: Yes Is the patient limited Romanian proficient: No Constitutional: No: Chills, Fever, Night Sweats, Weakness HEENTM: No: Blurred Vision, Double Vision, Nose Congestion Respiratory: No: Cough, Orthopnea, Shortness of Breath, Stridor, Wheezing Cardiac (ROS): No: Chest Pain, Edema, Chest Tightness ABD/GI: No: Constipated, Diarrhea, Nausea, Poor Appetite, Rectal Bleeding, Vomiting : No: Burning, Dysuria, Discharge, Frequency, Flank Pain, Hematuria, Pain Musculoskeletal: Yes: Neck Pain, Other (Head Injury). No: Back Pain Integumentary: No: Dryness, Erythema, Rash, Sweating Neurological: Yes: Dizziness (Chronic). No: Headache, Seizure, Tingling, Tremors, Weakness, Ataxia Psychiatric: Yes: Anxiety. No: Depression All Other Systems: Reviewed and Negative *Physical Exam - Vital Signs Last Vital Signs Temp Pulse Resp BP Pulse Ox 97.5 F L 79 18 135/74 98 09/30/16 19:57 09/30/16 19:57 09/30/16 19:57 09/30/16 19:57 09/30/16 19:57 - Physical Exam General Appearance: Yes: Nourished, Appropriately Dressed. No: Apparent Distress, Mild Distress, Moderate Distress, Severe Distress HEENT: positive: EOMI, MARYANNE, Normal ENT Inspection, Normal Voice, Symmetrical, TMs Normal, Pharynx Normal. negative: Nasal Congestion, Rhinorrhea, TM Bulging , TM Dull, TM Erythema, Excessive drooling Neck: positive: Tender (Midline tenderness on palpation. ROM WNL), Trachea midline, Supple. negative: Rigid Respiratory/Chest: positive: Lungs Clear, Normal Breath Sounds. negative: Respiratory Distress, Accessory Muscle Use, Labored Respiration, Rapid RR Cardiovascular: positive: Regular Rhythm, Regular Rate. negative: JVD, Murmur Gastrointestinal/Abdominal: positive: Normal Bowel Sounds, Soft. negative: Tender Musculoskeletal: positive: Normal Inspection, Other (Hematoma to Occipital region of scalp). negative: CVA Tenderness, CVA Tenderness (R), CVA Tenderness (L) Extremity: positive: Normal Capillary Refill, Normal Inspection, Normal Range of Motion, Tender (Lt hip and thigh. Decreased/Limited ROM), Pelvis Stable Integumentary: positive: Normal Color, Dry, Warm Neurologic: positive: histology technician II-XII NML intact, Fully Oriented, Alert, Normal Mood/ Affect, Normal Response, Motor Strength 5/5 ED Treatment Course - RADIOLOGY Radiology Studies Ordered: Category Date Time Status CERVICAL SPINE CT W/O CONTR [CT] Stat CT Scan 09/30/16 20:[address] WITHOUT CONTRAST [CT] Stat CT Scan 09/30/16 20:32 Ordered FEMUR-LEFT [RAD] Stat Radiology 09/30/16 20:32 Ordered HIP-LEFT [RAD] Stat Radiology 09/30/16 20:32 Ordered Progress Note - Progress Note Progress Note: ALL RADIOLOGICAL STUDIES COMPLETED AND NORMAL. WILL D/C BACK TO [facility]. *DC/Admit/Observation/Transfer Diagnosis at time of Disposition: Injury of head Qualifiers: Encounter type: initial encounter Qualified Code(s): S09.90XA - Unspecified injury of head, initial encounter Fall Qualifiers: Encounter type: initial encounter Qualified Code(s): W19.XXXA - Unspecified fall, initial encounter - Discharge Dispostion Disposition: LONG TERM FACILITY Condition at time of disposition: Fair - Patient Instructions Additional Instructions: MOTRIN OR TYLENOL FOR PAIN NEEDED. CONTINUE DAILY ACTIVITY TOLERATED. FOLLOW UP WITH YOUR DOCTOR. Print Language: SPANISH
== END 2016-10-01 00:56 ==
LOC: JER 19:21
DX: S09.90XA Unspecified injury of head, initial encounter (principal); W18.30XA Fall on same level, unspecified, initial encounter; Y93.9 Activity, unspecified; Y92.9 Unspecified place or not applicable; Y99.9 Unspecified external cause status; Z99.89 Dependence on other enabling machines and devices; Z79.4 Long term (current) use of insulin; I10 Essential (primary) hypertension; F41.9 Anxiety disorder, unspecified; J44.9 Chronic obstructive pulmonary disease, unspecified; E11.9 Type 2 diabetes mellitus without complications; E07.9 Disorder of thyroid, unspecified; Z87.891 Personal history of nicotine dependence
CPT/HCPCS: 70450-TC; 72125-TC; 73502-TC-LT; 73552-TC-LT; 99281-25

== ENCOUNTER 2016-10-15 17:12 | Inpatient (IN) | payer OTHER ==
--- NOTE | 2016-10-15 17:26 | PDOC ---
History of Present Illness - General History Source: Patient Exam Limitations: No Limitations - History of Present Illness Timing/Duration: other (today) Severity: moderate Modifying Factors: improves with: movement Associated Symptoms: reports: shortness of breath. denies: chest pain, cough, diaphoresis, fever/chills, headaches, loss of appetite, malaise, nausea/vomiting , seizure, syncope, weakness <Jonathan Gomez - Last Filed: 10/15/16 19:46> <Marge Mott - Last Filed: 10/15/16 20:30> - General Chief Complaint: Injury Stated Complaint: FALL Past History - Travel Traveled outside of the country in the last 30 days: No Close contact w/someone who was outside of country & ill: No - Past Medical History Anemia: No Asthma: No Cancer: No Cardiac Disorders: Yes (SOB) CVA: No COPD: Yes CHF: No Dementia: No Diabetes: Yes (IDDM) GI Disorders: Yes (GERD) Disorders: Yes (STRESS INCONTINENCE) HTN: Yes Hypercholesterolemia: Yes Liver Disease: No Psychiatric Problems: Yes (ANXIETY DISORDER) Suicide Attempt (Hx): No Seizures: No Thyroid Disease: Yes (HYPO) - Surgical History Abdominal Surgery: Yes Appendectomy: Yes Cardiac Surgery: No Cholecystectomy: No Lung Surgery: No Neurologic Surgery: No Orthopedic Surgery: Yes (R knee Sx) - Immunization History Td Vaccination: Yes Immunization Up to Date: Yes - Psycho/Social/Smoking Cessation Hx Anxiety: No Suicidal Ideation: No Smoking Status: Yes Smoking History: Former smoker Have you smoked in the past 12 months: No Number of Cigarettes Smoked Daily: 0 If you are a former smoker, when did you quit?: 2010 'Breaking Loose' booklet given: 02/18/15 Hx Alcohol Use: No Drug/Substance Use Hx: No Substance Use Type: None Hx Substance Use Treatment: No <Jonathan Gomez - Last Filed: 10/15/16 19:46> <Marge Mott - Last Filed: 10/15/16 20:30> - Past Medical History Allergies/Adverse Reactions: Allergies Allergy/AdvReac Type Severity Reaction Status Date / Time levofloxacin [From Levaquin] Allergy Unknown Rash Verified 10/15/16 17:30 Penicillins Allergy Unknown Verified 10/15/16 17:31 Home Medications: Ambulatory Orders Aripiprazole [Abilifbernadine -] 2 mg PO DAILY 12/17/15 Buspirone HCl [Buspar -] 10 mg PO TID 12/17/15 Insulin (Levemir) [Levemir Vial] 26 unit SQ HS 12/17/15 Levothyroxine [Synthroid -] 25 mcg PO DAILY 12/17/15 Ranolazine [Ranexa] 500 mg PO BID 12/17/15 Albuterol 0.083% Nebulizer Tresa [Ventolin 0.083% Nebulizer Soln -] 1 amp NEB Q4H PRN #0 amp 12/20/15 Omeprazole [Prilosec] 20 mg PO BID 01/04/16 Insulin Sliding Scale [Novolog Vial Sliding Scale -] 5 units SQ TIDAC 09/12/16 Paroxetine HCl [Paxil -] 30 mg PO DAILY 09/12/16 Alprazolam [Xanax] 0.25 mg PO Q8H PRN #0 tablet MDD 1mg 09/14/16 Meclizine HCl [Antivert -] 25 mg PO Q6HPO PRN #0 tablet 09/14/16 Atorvastatin Ca [Lipitor] 20 mg PO HS 10/15/16 Doxycycline Hyclate 100 mg PO BID 10/15/16 Oxybutynin Chloride [Oxybutynin Chloride ER] 15 mg PO DAILY 10/15/16 Review of Systems - Review of Systems Able to Perform ROS?: Yes Is the patient limited Haitian proficient: No Constitutional: No: Chills, Diaphoresis, Fever, Loss of Appetite, Malaise, Night Sweats, Weakness, Weight Stable, Unintentional Wgt. Loss HEENTM: Yes: See HPI. No: Recent change in vision, Double Vision, Nose Congestion Respiratory: Yes: Shortness of Breath, Other (chronic with copd) Cardiac (ROS): No: Chest Pain, Edema, Irregular Heart Rate, Lightheadedness, Palpitations, Syncope, Chest Tightness ABD/GI: No: Abdominal Distended, Abd. Pain w/ defecation, Blood Streaked Bowels , Difficulty Swallowing, Nausea : No: Burning, Dysuria, Discharge, Frequency Integumentary: No: Bruising, Change in Color Neurological: Yes: Unsteady Gait, Ataxia. No: Headache, Numbness, Paresthesia, Seizure, Tingling, Tremors, Weakness, Dizziness Psychiatric: No: Anxiety, Depression, Frequent Crying, Stressors Endocrine: No: Intolerance to Cold, Intolerance to Heat Hematologic/Lymphatic: No: Anemia, Blood Clots, Easy Bleeding, Easy Bruising <Jonathan Gomez - Last Filed: 10/15/16 19:46> *Physical Exam - Physical Exam General Appearance: Yes: Appropriately Dressed, Apparent Distress HEENT: positive: EOMI, MARYANNE, Normal ENT Inspection, Normal Voice, Symmetrical Neck: positive: Trachea midline, Normal Thyroid, Supple. negative: Decreased range of motion, Lymphadenopathy (L), Rigidity, Tender lateral, Tender midline Respiratory/Chest: positive: Lungs Clear, Normal Breath Sounds, Decreased Breath Sounds. negative: Accessory Muscle Use, Labored Respiration, Rapid RR Cardiovascular: positive: Regular Rhythm, Regular Rate Gastrointestinal/Abdominal: positive: Normal Bowel Sounds, Flat, Soft. negative : Pulsatile Mass Extremity: positive: Normal Capillary Refill, Other (swelling over the right olecranon with some ecchymosis, unable to move elbow due to pain, no wrist drop , sensation is intact and good grasp) Integumentary: positive: Dry, Warm Neurologic: positive: gas desulfurizer II-XII NML intact, Fully Oriented, Normal Mood/Affect , Motor Strength 5/5 <Jonathan Gomez - Last Filed: 10/15/16 19:46> - Vital Signs Last Vital Signs Temp Pulse Resp BP Pulse Ox 97.8 F 71 20 134/63 100 10/15/16 17:31 10/15/16 19:35 10/15/16 19:35 10/15/16 19:35 10/15/16 19:35 <Marge Mott - Last Filed: 10/15/16 20:30> ED Treatment Course - LABORATORY CBC & Chemistry Diagram: 10/15/16 17:49 10/15/16 17:49 <Jonathan Gomez - Last Filed: 10/15/16 19:46> - LABORATORY CBC & Chemistry Diagram: 10/15/16 17:49 10/15/16 17:49 - ADDITIONAL ORDERS Additional order review: Laboratory Results 10/15/16 17:49 Sodium 139 Potassium 4.5 Chloride 103 Carbon Dioxide 25 Anion Gap 11 BUN 33 H Creatinine 1.6 H Creat Clearance w eGFR 31.09 Random Glucose 181 H Calcium 9.3 Total Bilirubin 0.3 D AST 15 ALT 14 Alkaline Phosphatase 89 Total Protein 7.2 Albumin 3.6 10/15/16 17:49 RBC 3.76 MCV 86.2 MCHC 32.9 RDW 15.3 MPV 7.8 Neutrophils % 66.0 Lymphocytes % 22.3 Monocytes % 9.5 Eosinophils % 0.9 Basophils % 1.3 - Medications Given in the ED: ED Medications Discontinued Medications Generic Name Dose Route Start Last Admin Trade Name Guevara PRN Reason Stop Dose Admin Morphine Sulfate 2 mg 10/15/16 17:57 10/15/16 18:05 Morphine Injection - IVPUSH 10/15/16 17:58 2 mg ONCE ONE Administration Morphine Sulfate 4 mg 10/15/16 19:09 10/15/16 19:35 Morphine Injection - IVPUSH 10/15/16 19:10 4 mg ONCE ONE Administration Oxycodone/Acetaminophen 1 combo 10/15/16 17:32 10/15/16 18:06 Percocet 5/325 - PO 10/15/16 17:33 Not Given ONCE ONE <Marge Mott - Last Filed: 10/15/16 20:30> Medical Decision Making - Medical Decision Making 10/15/16 20:[address] Schmid at at 19:20. Referred to answering service, awaiting callback. Dr. Osorio, covering for Dr. Schmid, returned call at 19:27. Case discussed, Dr. Osorio requests the patient be admitted under Dr. Christianson. Called Dr. Mcgovern at at 19:25. Referred to answering service, awaiting callback. Dr. Eduardo, covering for Dr. Mcgovern, returned call at 19:35, case discussed. <Marge Mott - Last Filed: 10/15/16 20:30> *DC/Admit/Observation/Transfer - Discharge Dispostion Admit: Yes <Jonathan Gomez - Last Filed: 10/15/16 19:46> - Attestations Scribe Attestion: 10/15/16 20:26 Documentation prepared by Marge Mott, acting as medical center director for Jonathan Gomez MDMD/DO. <Marge Mott - Last Filed: 10/15/16 20:30> Diagnosis at time of Disposition: Fracture of olecranon process, right, closed - Discharge Dispostion Condition at time of disposition: Guarded - Referrals Referrals: Bryce Schmid MD [Primary Care Provider] -
[2016-10-15] MEDS ORDERED: OXYCODONE/APAP 5/325MG COMBO TABLET PO ONE (17:32)
[2016-10-15] MEDS ORDERED: morphine CARPU-JECT 2 MG/1 ML DISP.SYRIN IVPUSH ONE (17:57)
[2016-10-15] MEDS ORDERED: morphine CARPU-JECT 2 MG/1 ML DISP.SYRIN ONE (17:57)
[2016-10-15 18:03] LABS: BASOPHIL 1.3 % (0-2.0); EOSINOPHIL 0.9 % (0-4.5); MCH 28.4 pg (25.7-33.7); MCHC 32.9 g/dl (32.0-36.0); MEAN CELL VOLUME 86.2 fl (80-96); MEAN PLT VOLUME 7.8 fl (7.5-11.1); PLATELET COUNT 258 K/MM3 (134-434); RDW 15.3 % (11.6-15.6); WHITE BLOOD COUNT 7.4 K/mm3 (4.0-10.0)
[2016-10-15 18:34] LABS: ALBUMIN 3.6 g/dl (3.4-5.0); BILIRUBIN,TOTAL 0.3 mg/dL (0.2-1.0); CALCIUM 9.3 mg/dL (8.5-10.1); CREATININE 1.6 mg/dL (0.55-1.02); TOT PROT 7.2 g/dl (6.4-8.2)
[2016-10-15] MEDS ORDERED: morphine CARPU-JECT 4 MG/1 ML DISP.SYRIN IVPUSH ONE (19:09)
[2016-10-15] MEDS ORDERED: morphine CARPU-JECT 4 MG/1 ML DISP.SYRIN ONE (19:28)
[2016-10-15 20:27] LABS: INR 1.12 (0.82-1.09); PROTHROMBIN TIME (PATIENT) 12.4 SEC (9.98-11.88)
[2016-10-16] MEDS ORDERED: oxyCODONE HCL 5 MG TABLET PO PRN ×2 (00:40→13:56)
[2016-10-16] MEDS ORDERED: ACETAMINOPHEN 325 MG TABLET (FP) PO PRN ×2 (00:40→13:56)
[2016-10-16] MEDS ORDERED: HYDROmorphone HCL CARPU-JECT 1 MG/1 ML DISP.SYRIN IVPB PRN (00:41)
[2016-10-16] MEDS ORDERED: ALPRAZolam 0.25 MG TABLET PO PRN ×2 (00:42→13:56)
[2016-10-16] MEDS ORDERED: SODIUM CHLORIDE 0.45% 1,000 ML IV SCH ×2 (00:45→13:56)
[2016-10-16] MEDS ORDERED: ALBUTEROL SO4 0.083% IH SOL 2.5 MG/3 ML VIAL.NEB. NEB PRN ×2 (01:58→13:56)
[2016-10-16 02:11] VITALS: BMI 28.7
[2016-10-16] MEDS ORDERED: LEVOTHYROXINE NA 25 MCG TABLET (FP) PO SCH (07:00)
--- NOTE | 2016-10-16 08:08 | PN ---
Progress Note (short form) - Note Progress Note: Ortho a/p- right displaced olecranon fx OR for right olecranon orif NPO surgical clearance full consult dictated
--- NOTE | 2016-10-16 08:35 | CONS ---
DATE OF CONSULTATION: 10/16/2016 ORTHOPEDIC CONSULTATION: Patient is a 81-year-old female status post mechanical slip and fall landing on her right elbow complaining of pain and inability to move her right elbow. No numbness and tingling. PAST MEDICAL HISTORY: Significant for a right rotator cuff tear previously on the same limb. PHYSICAL EXAMINATION: She has abrasion over her olecranon, but she does have obvious gap over the proximal ulna. No active extension of the elbow. Flexion is good as is pronation, supination. Intact ulnar, medial, radial sensation and motor. 2+ pulses. Neurovascularly intact. IMAGING: X-rays show a displaced right olecranon fracture. IMPRESSION: Displaced right olecranon fracture. PLAN: Open reduction internal fixation will be booked for later today once medically optimized. JHON MARIA M.D. [id number]
[2016-10-16] MEDS ORDERED: ARIPiprazole 2 MG TABLET PO SCH (10:00)
[2016-10-16] MEDS ORDERED: PAROXETINE HCL 20 MG, PAROXETINE HCL 10 MG PO SCH (10:00)
[2016-10-16] MEDS ORDERED: RANOLAZINE E.R. 500 MG TABLET (FP) PO SCH ×2 (10:00→22:00)
--- NOTE | 2016-10-16 11:10 | EKG ---
Test Reason : Blood Pressure : / mmHG Vent. Rate : 068 BPM Atrial Rate : 068 BPM P-R Int : 136 ms QRS Dur : 112 ms QT Int : 446 ms P-R-T Axes : 056 009 051 degrees QTc Int : 474 ms NORMAL SINUS RHYTHM INCOMPLETE RIGHT BUNDLE BRANCH BLOCK CANNOT RULE OUT INFERIOR INFARCT , AGE UNDETERMINED CANNOT RULE OUT ANTERIOR INFARCT , AGE UNDETERMINED ABNORMAL ECG WHEN COMPARED WITH ECG OF 12-SEP-2016 12:12, NO SIGNIFICANT CHANGE WAS FOUND Confirmed by ARY HOLT MD ([id number]) on 10/16/2016 11:10:05 AM Referred By: Confirmed By:ARY HOLT MD
[2016-10-16] MEDS ORDERED: HYDROmorphone HCL CARPU-JECT 1 MG/1 ML DISP.SYRIN IVPUSH PRN ×2 (11:42→13:56)
[2016-10-16] MEDS ORDERED: PROPOFOL 20 ML ONE (11:51)
[2016-10-16] MEDS ORDERED: ROCURONIUM BROMIDE 50 MG/5 ML VIAL ONE ×2 (11:52)
[2016-10-16] MEDS ORDERED: MIDAZOLAM HCL 2 MG/2 ML SINGLE DOSE VIAL ONE (11:52)
[2016-10-16] MEDS ORDERED: CLINDAMYCIN PHOSPHATE 600 MG/4 ML VIAL IVPB ONE (12:25)
[2016-10-16] MEDS ORDERED: LIDOCAINE HCL/PF 2% SDV 5ML VIAL ONE (12:37)
[2016-10-16] MEDS ORDERED: CLINDAMYCIN PHOSPHATE 600 MG/4 ML VIAL ONE (12:37)
--- NOTE | 2016-10-16 13:29 | OP ---
Operative Note - Note: Operative Date: 10/16/16 ([facility]) Pre-Operative Diagnosis: right displaced olecranon fx Operation: right olecranon orif Post-Operative Diagnosis: Same as Pre-op Surgeon: Bryce Eduardo Manager Statistics: Jeff Mcduffie Anesthesiologist/CUTTER MACHINE: Fern Hall MD Anesthesia: General Estimated Blood Loss (mls): 25 Operative Report Dictated: Yes
[2016-10-16] MEDS ORDERED: HYDROmorphone HCL CARPU-JECT 2 MG/1 ML DISP.SYRIN ONE (15:21)
--- NOTE | 2016-10-16 17:00 | HP ---
Admitting History and Physical - Primary Care Physician PCP: Bryce Schmid - Admission Chief Complaint: Unable to obtain History of Present Illness: Ms Frazier is a 81 year old female who comes in with a fall and a olencranon fracture. I am seeing the patient after surgery so unable to obtain any history. ER note has no history recorded at this time so history is obtained from ambulance note and consultation. Ms Frazier was at [facility] and has history of attempting to ambulate without assistance. She got out of bed and had an unwitnessed fall. She was found on the ground and ambulance was called. She was brought in for further evaluation. She was seen by ortho and taken to the OR for ORIF. She appears to tolerate this well. I am seeing her immediately post op for the first time. Currently she is still sedated but arousable with loud voice. However unable to obtain history secondary to dementia and anesthesia. History Source: Medical Record Limitations to Obtaining History: Clinical Condition, Dementia - Past Medical History CREDIT PORTFOLIO MANAGER: Yes: Dementia, Other (ANXIETY DISORDER) Cardiovascular: Yes: HTN Pulmonary: Yes: Asthma, COPD, Other (CLAUDIA) Gastrointestinal: Yes: Other (rectal prolapse) Renal/: Yes: Neurogenic Bladder Heme/Onc: Yes: Anemia Psych: Yes: Anxiety, Depression Musculoskeletal: Yes: Chronic low back pain, Bursitis, Osteoarthritis Rheumatology: Yes: Fibromyalgia Endocrine: Yes: Diabetes Mellitus - Past Surgical History Additional Past Surgical History: ORIF - Smoking History Smoking history: Former smoker Have you smoked in the past 12 months: No Aproximately how many cigarettes per day: 0 If you are a former smoker, when did you quit?: 2010 - Alcohol/Substance Use Hx Alcohol Use: No - Social History Usual Living Arrangement: Yes: [facility] ADL: Support Services Occupation: former hairdresser, undergraduate intern History of Recent Travel: No Home Medications - Allergies Allergies/Adverse Reactions: Allergies Allergy/AdvReac Type Severity Reaction Status Date / Time levofloxacin [From Levaquin] Allergy Unknown Rash Verified 10/15/16 17:30 Penicillins Allergy Unknown Verified 10/15/16 17:31 - Home Medications Home Medications: Ambulatory Orders Aripiprazole [Abilify -] 2 mg PO DAILY 12/17/15 Buspirone HCl [Buspar -] 10 mg PO TID 12/17/15 Insulin (Levemir) [Levemir Vial] 26 unit SQ HS 12/17/15 Levothyroxine [Synthroid -] 25 mcg PO DAILY 12/17/15 Ranolazine [Ranexa] 500 mg PO BID 12/17/15 Albuterol 0.083% Nebulizer Tresa [Ventolin 0.083% Nebulizer Soln -] 1 amp NEB Q4H PRN #0 amp 12/20/15 Omeprazole [Prilosec] 20 mg PO BID 01/04/16 Insulin Sliding Scale [Novolog Vial Sliding Scale -] 5 units SQ TIDAC 09/12/16 Paroxetine HCl [Paxil -] 30 mg PO DAILY 09/12/16 Alprazolam [Xanax] 0.25 mg PO Q8H PRN #0 tablet MDD 1mg 09/14/16 Meclizine HCl [Antivert -] 25 mg PO Q6HPO PRN #0 tablet 09/14/16 Atorvastatin Ca [Lipitor] 20 mg PO HS 10/15/16 Doxycycline Hyclate 100 mg PO BID 10/15/16 Oxybutynin Chloride [Oxybutynin Chloride ER] 15 mg PO DAILY 10/15/16 Family Disease History - Family Disease History Family Disease History: Diabetes: Grandparent, Heart Disease: Father (colon), Mother, Brother, CA: Father Review of Systems Unable to obtain ROS, reason: dementia, anesthesia Physical Examination Vital Signs: Vital Signs Temperature 98.3 F 10/16/16 13:37 Pulse Rate 90 10/16/16 15:20 Respiratory Rate 18 10/16/16 15:20 Blood Pressure 158/83 10/16/16 15:20 O2 Sat by Pulse Oximetry (%) 100 10/16/16 15:20 Constitutional: Yes: No Distress, Calm Eyes: Yes: Conjunctiva Clear, PERRL Cardiovascular: Yes: Regular Rate and Rhythm. No: Gallop, Murmur, Rub Respiratory: Yes: Regular, CTA Bilaterally. No: Rales, Rhonchi, Wheezes Gastrointestinal: Yes: Normal Bowel Sounds, Soft. No: Distention, Tenderness Extremities: Yes: WNL Edema: No Labs: Laboratory Results - last 24 hr 10/15/16 10/15/16 10/15/16 17:49 17:49 20:10 WBC 7.4 RBC 3.76 Hgb 10.7 Hct 32.4 MCV 86.2 MCHC 32.9 RDW 15.3 Plt Count 258 MPV 7.8 Neutrophils % 66.0 Lymphocytes % 22.3 Monocytes % 9.5 Eosinophils % 0.9 Basophils % 1.3 INR 1.12 Sodium 139 Potassium 4.5 Chloride 103 Carbon Dioxide 25 Anion Gap 11 BUN 33 H Creatinine 1.6 H Creat Clearance w eGFR 31.09 POC Glucometer Random Glucose 181 H Calcium 9.3 Total Bilirubin 0.3 D AST 15 ALT 14 Alkaline Phosphatase 89 Total Protein 7.2 Albumin 3.6 Blood Type Antibody Screen 10/15/16 10/15/16 10/16/16 20:10 23:44 05:52 WBC RBC Hgb Hct MCV MCHC RDW Plt Count MPV Neutrophils % Lymphocytes % Monocytes % Eosinophils % Basophils % INR Sodium Potassium Chloride Carbon Dioxide Anion Gap BUN Creatinine Creat Clearance w eGFR POC Glucometer 188 201 Random Glucose Calcium Total Bilirubin AST ALT Alkaline Phosphatase Total Protein Albumin Blood Type O POSITIVE Antibody Screen Negative Imaging - Results Chest X-ray: Report Reviewed, Image Reviewed X-ray: Report Reviewed Problem List - Problems (1) Fall Assessment/Plan: -patient with unwitnessed fall and olencranon fracture -head CT not ordered in the ED, will obtain one stat to evaluate for possible bleed -PT consult -fall risk precautions -will use SCDs for DVT PPx until head CT rules out bleed Code(s): W19.XXXA - UNSPECIFIED FALL, INITIAL ENCOUNTER Qualifiers: Encounter type: initial encounter Qualified Code(s): W19.XXXA - Unspecified fall, initial encounter (2) Fracture of olecranon process, right, closed Assessment/Plan: -s/p ORIF -tolerated well -ortho following Code(s): S52.021A - DISP FX OF OLECRAN PRO W/O INTARTIC EXTN RIGHT ULNA, INIT (3) COPD (chronic obstructive pulmonary disease) Assessment/Plan: -continue albuterol -not in exacerbation Code(s): J44.9 - CHRONIC OBSTRUCTIVE PULMONARY DISEASE, UNSPECIFIED (4) Diabetes mellitus Assessment/Plan: -diabetic diet -continue levemir -SSI Code(s): E11.9 - TYPE 2 DIABETES MELLITUS WITHOUT COMPLICATIONS Qualifiers: Diabetes mellitus type: type 2 Diabetes mellitus complication status: with ketoacidosis Diabetes mellitus complication detail: without coma (5) Hypothyroid Assessment/Plan: -continue synthroid Code(s): E03.9 - HYPOTHYROIDISM, UNSPECIFIED (6) Dementia Assessment/Plan: -continue home regimen Code(s): F03.90 - UNSPECIFIED DEMENTIA WITHOUT BEHAVIORAL DISTURBANCE
[2016-10-16] MEDS: HYDROmorphone HCL CARPU-JECT 1 MG/1 ML DISP.SYRIN IVPB PRN (17:40)
[2016-10-16] MEDS ORDERED: INSULIN DETEMIR 100 UNITS/ML MDV SQ SCH ×2 (22:00)
[2016-10-16] MEDS: INSULIN SLIDING SCALE (NOVOLOG) 1 VIAL SQ SCH (22:06)
[2016-10-17] MEDS: HYDROmorphone HCL CARPU-JECT 1 MG/1 ML DISP.SYRIN IVPB PRN ×4 (00:23→21:12)
--- NOTE | 2016-10-17 06:14 | OP ---
DATE OF OPERATION: 10/16/2016 PREOPERATIVE DIAGNOSIS: Right olecranon fracture. POSTOPERATIVE DIAGNOSIS: Right olecranon fracture. PROCEDURE: Open reduction, internal fixation, right olecranon fracture. SURGICAL ATTENDING: Bryce Eduardo MD MEASUREMENT DEPARTMENT CHIEF CLERK: CRISTA Alexis ANESTHESIA: Regional plus general. CLOSURE: Two 0.62 K-wires with cerclage wire, No. 1 Vicryl fascia, subcutaneous, and gertrude, skin. ESTIMATED BLOOD LOSS: Negligible. COMPLICATIONS: None. CONDITION: Stable. DESCRIPTION OF OPERATIVE PROCEDURE: Patient taken to the operating room on October 16, 2016. General and regional anesthesia were administered by the anesthesiologist. IV Kefzol was administered prophylactically prior to the case. Patient placed in a slightly lateral position with a bump under the shoulder to help expose the olecranon. Right upper extremity was prepped and draped in the usual sterile fashion. A 10-cm curvilinear longitudinal incision over the olecranon was incised. Hemostasis was then achieved with Bovie cautery. Sharp dissection was carried down to the level of the fracture. Curets and irrigation were used to clear out the fracture. Periosteal elevator was used both medial and laterally to expose the proximal ulna shaft. An anatomical reduction was easily obtained and held with a 0.2 reduction clamp. Two 0.62 K-wires were drilled from the tip of the olecranon past the fracture into the intramedullary canal, achieving excellent stability ; 3 cm distal to the fracture a transverse drill hole was made with a 2.0 drill bit. A cerclage figure-of-8 AO wire was then placed and was tensioned with extension. The edges of the 0.62 K-wires were cut, bent over, and malleted into place. The elbow was taken through a range of motion and found to go in full extension, full flexion, with excellent pronation and supination with good maintenance of the fracture reduction. The wound was irrigated. The fascia was closed using 0 Vicryl, 2-0 for the subcutaneous, and gertrude for skin followed by a sterile pressure dressing and a posterior splint. Patient awakened from anesthesia and transferred to recovery in stable condition. No complication. Estimated blood loss: Negligible. Jaylon [id number]
[2016-10-17] MEDS ORDERED: INSULIN (NOVOLOG) ASPART 100 UNITS/ML 10ML VIAL ONE ×3 (06:23→16:27)
[2016-10-17] MEDS: INSULIN SLIDING SCALE (NOVOLOG) 1 VIAL SQ SCH ×4 (06:33→23:20)
[2016-10-17] MEDS ORDERED: LEVOTHYROXINE NA 25 MCG TABLET (FP) PO SCH (07:00)
[2016-10-17] MEDS ORDERED: oxyCODONE HCL 5 MG TABLET PO PRN (07:25)
[2016-10-17] MEDS ORDERED: ACETAMINOPHEN 325 MG TABLET (FP) PO PRN (07:25)
[2016-10-17 08:40] LABS: URINE APPEARANCE CLEAR; URINE BILIRUBIN NEGATIVE (NEGATIVE); URINE BLOOD NEGATIVE (NEGATIVE); URINE COLOR YELLOW; URINE GLUCOSE (UA) NEGATIVE (NEGATIVE); URINE KETONE NEGATIVE (NEGATIVE); URINE LEUK ESTERASE NEGATIVE (NEGATIVE); URINE NITRITE NEGATIVE (NEGATIVE); URINE PROTEIN NEGATIVE (NEGATIVE); URINE UROBILINOGEN NEGATIVE E.U./dl (0.2-1.0)
[2016-10-17] MEDS: RANOLAZINE E.R. 500 MG TABLET (FP) PO SCH ×2 (09:12→23:30)
[2016-10-17] MEDS: ARIPiprazole 2 MG TABLET PO SCH (09:13)
[2016-10-17] MEDS: PARoxetine HCL 20 MG TABLET (FP) PO SCH (09:20)
[2016-10-17] MEDS ORDERED: PT OWN MED DRAWER 7, Y5N ONE ×3 (09:28→23:07)
[2016-10-17] MEDS ORDERED: ARIPiprazole 2 MG TABLET PO SCH (10:00)
[2016-10-17] MEDS ORDERED: PAROXETINE HCL 20 MG, PAROXETINE HCL 10 MG PO SCH ×2 (10:00)
--- NOTE | 2016-10-17 10:42 | PN ---
Progress Note (short form) - Note Progress Note: POD #1 - s/p ORIF of right olecranon under general anesthesia. Pt. seems to have tolerated the procedure well. Pt. still remains agitated, anxious this morning. However, no apparent anesthetic complications noted. Continue current care.
--- NOTE | 2016-10-17 11:53 | PN ---
Progress Note, Physician Chief Complaint: Unable to obtain, RN says was awake all night. - Current Medication List Current Medications: Active Medications Acetaminophen (Tylenol -) 325 mg PO Q4H PRN PRN Reason: PAIN Stop: 10/19/16 00:39 Albuterol Sulfate (Ventolin 0.083% Nebulizer Soln -) 1 amp NEB Q4H PRN PRN Reason: SHORT OF BREATH/WHEEZING Alprazolam (Xanax -) 0.25 mg PO Q8H PRN Aripiprazole (Abilify) 2 mg PO DAILY [facility] Last Admin: 10/17/16 09:13 Dose: 2 mg Hydromorphone HCl (Dilaudid Injection -) 0.5 mg IVPB Q2H PRN PRN Reason: SEVERE PAIN Sodium Chloride (1/2 Normal Saline) 1,000 mls @ 75 mls/hr IV ASDIR [facility] Insulin Aspart (Novolog Vial Sliding Scale -) 1 vial SQ ACHS [facility] PRN Reason: Protocol Last Admin: 10/17/16 06:33 Dose: 5 units Insulin Detemir (Levemir Vial) 26 units SQ HS [facility] Levothyroxine Sodium (Synthroid -) 25 mcg PO DAILY@0700 [facility] Oxycodone HCl (Roxicodone -) 5 mg PO Q4H PRN PRN Reason: PAIN Paroxetine HCl (Paxil -) 30 mg PO DAILY [facility] Last Admin: 10/17/16 09:20 Dose: 30 mg Ranolazine (Ranexa -) 500 mg PO BID [facility] Last Admin: 10/17/16 09:12 Dose: 500 mg - Objective Vital Signs: Vital Signs Temperature 98 F 10/17/16 08:00 Pulse Rate 126 H 10/17/16 08:00 Respiratory Rate 18 10/17/16 08:00 Blood Pressure 109/51 10/17/16 08:00 O2 Sat by Pulse Oximetry (%) 96 10/16/16 21:00 Constitutional: Yes: Well Nourished, No Distress, Calm Cardiovascular: Yes: Regular Rate and Rhythm. No: Gallop, Murmur, Rub Respiratory: Yes: Regular, CTA Bilaterally. No: Rales, Rhonchi, Wheezes Gastrointestinal: Yes: Normal Bowel Sounds, Soft. No: Distention, Tenderness Extremities: Yes: Other (R arm in cast) Edema: No Labs: INR, PTT INR 1.12 (0.82-1.09) 10/15/16 20:10 Problem List - Problems (1) Fall Code(s): W19.XXXA - UNSPECIFIED FALL, INITIAL ENCOUNTER Qualifiers: Encounter type: initial encounter Qualified Code(s): W19.XXXA - Unspecified fall, initial encounter (2) Fracture of olecranon process, right, closed Code(s): S52.021A - DISP FX OF OLECRAN PRO W/O INTARTIC EXTN RIGHT ULNA, INIT (3) COPD (chronic obstructive pulmonary disease) Code(s): J44.9 - CHRONIC OBSTRUCTIVE PULMONARY DISEASE, UNSPECIFIED (4) Diabetes mellitus Code(s): E11.9 - TYPE 2 DIABETES MELLITUS WITHOUT COMPLICATIONS Qualifiers: Diabetes mellitus type: type 2 Diabetes mellitus complication status: with ketoacidosis Diabetes mellitus complication detail: without coma (5) Hypothyroid Code(s): E03.9 - HYPOTHYROIDISM, UNSPECIFIED (6) Dementia Code(s): F03.90 - UNSPECIFIED DEMENTIA WITHOUT BEHAVIORAL DISTURBANCE Assessment/Plan (1) Fall Assessment/Plan: -head CT negative -fall precautions -PT consulted Code(s): W19.XXXA - UNSPECIFIED FALL, INITIAL ENCOUNTER Qualifiers: Encounter type: initial encounter Qualified Code(s): W19.XXXA - Unspecified fall, initial encounter (2) Fracture of olecranon process, right, closed Assessment/Plan: -s/p ORIF -tolerated well -ortho following Code(s): S52.021A - DISP FX OF OLECRAN PRO W/O INTARTIC EXTN RIGHT ULNA, INIT (3) COPD (chronic obstructive pulmonary disease) Assessment/Plan: -continue albuterol -not in exacerbation Code(s): J44.9 - CHRONIC OBSTRUCTIVE PULMONARY DISEASE, UNSPECIFIED (4) Diabetes mellitus Assessment/Plan: -diabetic diet -continue levemir -SSI Code(s): E11.9 - TYPE 2 DIABETES MELLITUS WITHOUT COMPLICATIONS Qualifiers: Diabetes mellitus type: type 2 Diabetes mellitus complication status: with ketoacidosis Diabetes mellitus complication detail: without coma (5) Hypothyroid Assessment/Plan: -continue synthroid Code(s): E03.9 - HYPOTHYROIDISM, UNSPECIFIED (6) Dementia Assessment/Plan: -continue abilify -continue prn xanax -add home buspar back to regimen -monitor, with agitation Code(s): F03.90 - UNSPECIFIED DEMENTIA WITHOUT BEHAVIORAL DISTURBANCE
[2016-10-17] MEDS: ALPRAZolam 0.25 MG TABLET PO PRN (12:49)
[2016-10-17] MEDS: SODIUM CHLORIDE 0.45% 1,000 ML IV SCH (15:57)
[2016-10-17] MEDS: busPIRone HCL 10 MG TABLET (FP) PO SCH ×2 (15:57→23:30)
[2016-10-17] MEDS ORDERED: INSULIN DETEMIR 100 UNITS/ML MDV SQ SCH (22:00)
[2016-10-18] MEDS: HYDROmorphone HCL CARPU-JECT 1 MG/1 ML DISP.SYRIN IVPB PRN ×2 (00:42→06:44)
[2016-10-18] MEDS ORDERED: PT OWN MED DRAWER 7, Y5N ONE ×4 (06:35→21:04)
[2016-10-18] MEDS ORDERED: INSULIN (NOVOLOG) ASPART 100 UNITS/ML 10ML VIAL ONE (06:35)
[2016-10-18] MEDS: busPIRone HCL 10 MG TABLET (FP) PO SCH ×3 (06:43→21:14)
[2016-10-18] MEDS: SODIUM CHLORIDE 0.45% 1,000 ML IV SCH (06:43)
[2016-10-18] MEDS: INSULIN SLIDING SCALE (NOVOLOG) 1 VIAL SQ SCH ×4 (06:44→21:15)
[2016-10-18] MEDS: LEVOTHYROXINE NA 25 MCG TABLET (FP) PO SCH (06:44)
[2016-10-18 07:52] LABS: BASOPHIL 0.2 % (0-2.0); MCH 27.9 pg (25.7-33.7); MCHC 32.3 g/dl (32.0-36.0); MEAN CELL VOLUME 86.4 fl (80-96); MEAN PLT VOLUME 8.2 fl (7.5-11.1); NEUTROPHILS 75.5 % (42.8-82.8); PLATELET COUNT 178 K/MM3 (134-434); RDW 15.5 % (11.6-15.6); WHITE BLOOD COUNT 11.8 K/mm3 (4.0-10.0)
[2016-10-18 08:23] LABS: CALCIUM 8.5 mg/dL (8.5-10.1); MAGNESIUM 1.3 mg/dL (1.8-2.4)
[2016-10-18 08:24] LABS: CREATININE 1.2 mg/dL (0.55-1.02); PHOSPHOROUS 2.2 mg/dL (2.5-4.9)
[2016-10-18] MEDS: RANOLAZINE E.R. 500 MG TABLET (FP) PO SCH ×2 (10:05→21:14)
[2016-10-18] MEDS: PARoxetine HCL 20 MG TABLET (FP) PO SCH (10:06)
[2016-10-18] MEDS: ARIPiprazole 2 MG TABLET PO SCH (10:06)
[2016-10-18] MEDS ORDERED: MAGNESIUM SULF 50% (8.12 MEQ/2 ML-1 GM VIAL) IVPB ONE (11:18)
--- NOTE | 2016-10-18 14:13 | PN ---
Progress Note, Physician Chief Complaint: Ms Frazier says she is feeling better today. Is not having pain. No cp, sob, n/ v. - Current Medication List Current Medications: Active Medications Acetaminophen (Tylenol -) 325 mg PO Q4H PRN PRN Reason: PAIN Stop: 10/19/16 00:39 Last Admin: 10/17/16 12:49 Dose: 325 mg Albuterol Sulfate (Ventolin 0.083% Nebulizer Soln -) 1 amp NEB Q4H PRN PRN Reason: SHORT OF BREATH/WHEEZING Alprazolam (Xanax -) 0.25 mg PO Q8H PRN Last Admin: 10/17/16 12:49 Dose: 0.25 mg Aripiprazole (Abilify) 2 mg PO DAILY [facility] Last Admin: 10/18/16 10:06 Dose: 2 mg Buspirone HCl (Buspar -) 10 mg PO TID [facility] Last Admin: 10/18/16 06:43 Dose: Not Given Sodium Chloride (1/2 Normal Saline) 1,000 mls @ 75 mls/hr IV ASDIR [facility] Last Admin: 10/18/16 06:43 Dose: 75 mls/hr Insulin Aspart (Novolog Vial Sliding Scale -) 1 vial SQ ACHS [facility] PRN Reason: Protocol Last Admin: 10/18/16 11:42 Dose: Not Given Insulin Detemir (Levemir Vial) 36 units SQ HS [facility] Levothyroxine Sodium (Synthroid -) 25 mcg PO DAILY@0700 [facility] Last Admin: 10/18/16 06:44 Dose: Not Given Oxycodone HCl (Roxicodone -) 5 mg PO Q4H PRN PRN Reason: PAIN Paroxetine HCl (Paxil -) 30 mg PO DAILY [facility] Last Admin: 10/18/16 10:06 Dose: 30 mg Potassium Phos/Sodium Phos (Phos-Nak Packet -) 1 packet PO TID [facility] Ranolazine (Ranexa -) 500 mg PO BID [facility] Last Admin: 10/18/16 10:05 Dose: 500 mg - Objective Vital Signs: Vital Signs Temperature 100.3 F H 10/18/16 08:53 Pulse Rate 87 10/18/16 08:53 Respiratory Rate 20 10/18/16 08:53 Blood Pressure 115/58 10/18/16 08:53 O2 Sat by Pulse Oximetry (%) 97 10/17/16 21:00 Constitutional: Yes: Well Nourished, No Distress, Calm Cardiovascular: Yes: Regular Rate and Rhythm. No: Gallop, Murmur, Rub Respiratory: Yes: Regular, CTA Bilaterally. No: Rales, Rhonchi, Wheezes Gastrointestinal: Yes: Normal Bowel Sounds, Soft. No: Distention, Tenderness Extremities: Yes: Other (R arm in cast) Edema: No Labs: CBC, BMP 10/18/16 06:20 10/18/16 06:20 INR, PTT INR 1.12 (0.82-1.09) 10/15/16 20:10 Problem List - Problems (1) Fall Code(s): W19.XXXA - UNSPECIFIED FALL, INITIAL ENCOUNTER Qualifiers: Encounter type: initial encounter Qualified Code(s): W19.XXXA - Unspecified fall, initial encounter (2) Fracture of olecranon process, right, closed Code(s): S52.021A - DISP FX OF OLECRAN PRO W/O INTARTIC EXTN RIGHT ULNA, INIT (3) COPD (chronic obstructive pulmonary disease) Code(s): J44.9 - CHRONIC OBSTRUCTIVE PULMONARY DISEASE, UNSPECIFIED (4) Diabetes mellitus Code(s): E11.9 - TYPE 2 DIABETES MELLITUS WITHOUT COMPLICATIONS Qualifiers: Diabetes mellitus type: type 2 Diabetes mellitus complication status: with ketoacidosis Diabetes mellitus complication detail: without coma (5) Hypothyroid Code(s): E03.9 - HYPOTHYROIDISM, UNSPECIFIED (6) Dementia Code(s): F03.90 - UNSPECIFIED DEMENTIA WITHOUT BEHAVIORAL DISTURBANCE Assessment/Plan (1) Fall Assessment/Plan: -head CT negative -fall precautions -PT consulted Code(s): W19.XXXA - UNSPECIFIED FALL, INITIAL ENCOUNTER Qualifiers: Encounter type: initial encounter Qualified Code(s): W19.XXXA - Unspecified fall, initial encounter (2) Fracture of olecranon process, right, closed Assessment/Plan: -s/p ORIF -tolerated well -ortho following Code(s): S52.021A - DISP FX OF OLECRAN PRO W/O INTARTIC EXTN RIGHT ULNA, INIT (3) COPD (chronic obstructive pulmonary disease) Assessment/Plan: -continue albuterol -not in exacerbation Code(s): J44.9 - CHRONIC OBSTRUCTIVE PULMONARY DISEASE, UNSPECIFIED (4) Diabetes mellitus Assessment/Plan: -diabetic diet -will increase levemir today, glucose elevated and prefer tighter control -SSI Code(s): E11.9 - TYPE 2 DIABETES MELLITUS WITHOUT COMPLICATIONS Qualifiers: Diabetes mellitus type: type 2 Diabetes mellitus complication status: with ketoacidosis Diabetes mellitus complication detail: without coma (5) Hypothyroid Assessment/Plan: -continue synthroid Code(s): E03.9 - HYPOTHYROIDISM, UNSPECIFIED (6) Dementia Assessment/Plan: -much improved -continue current regimen -well controlled -spoke with son, says dilaudid causes agitation -stopped dilaudid today Code(s): F03.90 - UNSPECIFIED DEMENTIA WITHOUT BEHAVIORAL DISTURBANCE
[2016-10-18] MEDS: NAPH,MB-DB/K PH,MBDB POWDER PACKET PO SCH ×2 (15:13→21:16)
[2016-10-18] MEDS: ALPRAZolam 0.25 MG TABLET PO PRN (21:15)
[2016-10-18] MEDS: INSULIN DETEMIR 100 UNITS/ML MDV SQ SCH (21:16)
[2016-10-19] MEDS ORDERED: PT OWN MED DRAWER 7, Y5N ONE (06:11)
[2016-10-19] MEDS: NAPH,MB-DB/K PH,MBDB POWDER PACKET PO SCH ×3 (06:41→21:44)
[2016-10-19] MEDS: INSULIN SLIDING SCALE (NOVOLOG) 1 VIAL SQ SCH ×4 (06:41→21:44)
[2016-10-19] MEDS: LEVOTHYROXINE NA 25 MCG TABLET (FP) PO SCH (06:41)
[2016-10-19] MEDS: busPIRone HCL 10 MG TABLET (FP) PO SCH ×3 (06:41→21:45)
[2016-10-19 08:05] LABS: BASOPHIL 0.3 % (0-2.0); EOSINOPHIL 0.3 % (0-4.5); MCH 28.6 pg (25.7-33.7); MCHC 33.1 g/dl (32.0-36.0); MEAN CELL VOLUME 86.4 fl (80-96); MEAN PLT VOLUME 7.9 fl (7.5-11.1); NEUTROPHILS 72.9 % (42.8-82.8); PLATELET COUNT 168 K/MM3 (134-434); RDW 15.6 % (11.6-15.6); WHITE BLOOD COUNT 9.1 K/mm3 (4.0-10.0)
[2016-10-19 08:41] LABS: PHOSPHOROUS 2.6 mg/dL (2.5-4.9)
[2016-10-19] MEDS: ARIPiprazole 2 MG TABLET PO SCH (09:29)
[2016-10-19] MEDS: ALPRAZolam 0.25 MG TABLET PO PRN ×2 (09:30→19:02)
[2016-10-19] MEDS: RANOLAZINE E.R. 500 MG TABLET (FP) PO SCH ×2 (09:31→21:44)
[2016-10-19] MEDS: PARoxetine HCL 20 MG TABLET (FP) PO SCH (09:31)
[2016-10-19] MEDS: ALBUTEROL SO4 0.083% IH SOL 2.5 MG/3 ML VIAL.NEB. NEB PRN (10:20)
--- NOTE | 2016-10-19 11:36 | PN ---
Progress Note (short form) - Note Progress Note: Pt seen and examined, s/p R olecranon ORIF, comfortable, no pain while in the splint. Appears grossly NVI, no severe swelling of hand. Rec DC ok from an orthopedic pov. F/U with Dr Eduardo in 1-2 weeks No activity with this elbow, or arm at this time.
[2016-10-19] MEDS: SODIUM CHLORIDE 0.45% 1,000 ML IV SCH (11:46)
[2016-10-19] MEDS ORDERED: INSULIN (NOVOLOG) ASPART 100 UNITS/ML 10ML VIAL ONE (12:01)
--- NOTE | 2016-10-19 12:16 | PN ---
Progress Note, Physician Chief Complaint: Ms Frazier says she wants to go home. No cp, sob, n/v. Has not been up with PT. - Current Medication List Current Medications: Active Medications Albuterol Sulfate (Ventolin 0.083% Nebulizer Soln -) 1 amp NEB Q4H PRN PRN Reason: SHORT OF BREATH/WHEEZING Alprazolam (Xanax -) 0.25 mg PO Q8H PRN Last Admin: 10/19/16 09:30 Dose: 0.25 mg Aripiprazole (Abilify) 2 mg PO DAILY [facility] Last Admin: 10/19/16 09:29 Dose: 2 mg Buspirone HCl (Buspar -) 10 mg PO TID [facility] Last Admin: 10/19/16 06:41 Dose: 10 mg Sodium Chloride (1/2 Normal Saline) 1,000 mls @ 75 mls/hr IV ASDIR [facility] Last Admin: 10/19/16 11:46 Dose: Not Given Insulin Aspart (Novolog Vial Sliding Scale -) 1 vial SQ ACHS [facility] PRN Reason: Protocol Last Admin: 10/19/16 12:13 Dose: 3 units Insulin Detemir (Levemir Vial) 36 units SQ HS [facility] Last Admin: 10/18/16 21:16 Dose: Not Given Levothyroxine Sodium (Synthroid -) 25 mcg PO DAILY@0700 [facility] Last Admin: 10/19/16 06:41 Dose: 25 mcg Oxycodone HCl (Roxicodone -) 5 mg PO Q4H PRN PRN Reason: PAIN Paroxetine HCl (Paxil -) 30 mg PO DAILY [facility] Last Admin: 10/19/16 09:31 Dose: 30 mg Potassium Phos/Sodium Phos (Phos-Nak Packet -) 1 packet PO TID [facility] Last Admin: 10/19/16 06:41 Dose: 1 packet Ranolazine (Ranexa -) 500 mg PO BID [facility] Last Admin: 10/19/16 09:31 Dose: 500 mg - Objective Vital Signs: Vital Signs Temperature 98.2 F 10/19/16 08:53 Pulse Rate 66 10/19/16 08:53 Respiratory Rate 18 10/19/16 08:53 Blood Pressure 133/72 10/19/16 08:53 O2 Sat by Pulse Oximetry (%) 99 10/19/16 09:00 Constitutional: Yes: Well Nourished, No Distress, Calm Cardiovascular: Yes: Regular Rate and Rhythm. No: Gallop, Murmur, Rub Respiratory: Yes: Regular, CTA Bilaterally. No: Rales, Rhonchi, Wheezes Gastrointestinal: Yes: Normal Bowel Sounds, Soft. No: Distention, Tenderness Extremities: Yes: Other (arm in cast) Edema: No Labs: CBC, BMP 10/19/16 06:38 10/19/16 06:38 INR, PTT INR 1.12 (0.82-1.09) 10/15/16 20:10 Problem List - Problems (1) Fall Code(s): W19.XXXA - UNSPECIFIED FALL, INITIAL ENCOUNTER Qualifiers: Encounter type: initial encounter Qualified Code(s): W19.XXXA - Unspecified fall, initial encounter (2) Fracture of olecranon process, right, closed Code(s): S52.021A - DISP FX OF OLECRAN PRO W/O INTARTIC EXTN RIGHT ULNA, INIT (3) COPD (chronic obstructive pulmonary disease) Code(s): J44.9 - CHRONIC OBSTRUCTIVE PULMONARY DISEASE, UNSPECIFIED (4) Diabetes mellitus Code(s): E11.9 - TYPE 2 DIABETES MELLITUS WITHOUT COMPLICATIONS Qualifiers: Diabetes mellitus type: type 2 Diabetes mellitus complication status: with ketoacidosis Diabetes mellitus complication detail: without coma (5) Hypothyroid Code(s): E03.9 - HYPOTHYROIDISM, UNSPECIFIED (6) Dementia Code(s): F03.90 - UNSPECIFIED DEMENTIA WITHOUT BEHAVIORAL DISTURBANCE Assessment/Plan (1) Fall Assessment/Plan: -PT following -encouraged patient to work with PT Code(s): W19.XXXA - UNSPECIFIED FALL, INITIAL ENCOUNTER Qualifiers: Encounter type: initial encounter Qualified Code(s): W19.XXXA - Unspecified fall, initial encounter (2) Fracture of olecranon process, right, closed Assessment/Plan: -s/p ORIF -tolerated well -stable for discharge from this standpoint Code(s): S52.021A - DISP FX OF OLECRAN PRO W/O INTARTIC EXTN RIGHT ULNA, INIT (3) COPD (chronic obstructive pulmonary disease) Assessment/Plan: -continue albuterol -not in exacerbation Code(s): J44.9 - CHRONIC OBSTRUCTIVE PULMONARY DISEASE, UNSPECIFIED (4) Diabetes mellitus Assessment/Plan: -levemir held last night -instructed RN to call before holding -continue current management Code(s): E11.9 - TYPE 2 DIABETES MELLITUS WITHOUT COMPLICATIONS Qualifiers: Diabetes mellitus type: type 2 Diabetes mellitus complication status: with ketoacidosis Diabetes mellitus complication detail: without coma (5) Hypothyroid Assessment/Plan: -continue synthroid Code(s): E03.9 - HYPOTHYROIDISM, UNSPECIFIED (6) Dementia Assessment/Plan: -stable Code(s): F03.90 - UNSPECIFIED DEMENTIA WITHOUT BEHAVIORAL DISTURBANCE
[2016-10-19] MEDS: INSULIN DETEMIR 100 UNITS/ML MDV SQ SCH (21:36)
[2016-10-19] MEDS ORDERED: INSULIN DETEMIR 100 UNITS/ML MDV SQ ONE (22:00)
[2016-10-20] MEDS: busPIRone HCL 10 MG TABLET (FP) PO SCH ×3 (06:24→22:54)
[2016-10-20] MEDS: LEVOTHYROXINE NA 25 MCG TABLET (FP) PO SCH (06:24)
[2016-10-20] MEDS: ALPRAZolam 0.25 MG TABLET PO PRN (06:24)
[2016-10-20] MEDS: NAPH,MB-DB/K PH,MBDB POWDER PACKET PO SCH ×3 (06:25→22:54)
[2016-10-20] MEDS: INSULIN SLIDING SCALE (NOVOLOG) 1 VIAL SQ SCH ×4 (06:43→21:32)
[2016-10-20 07:52] LABS: BASOPHIL 0.6 % (0-2.0); EOSINOPHIL 0.2 % (0-4.5); MCH 28.5 pg (25.7-33.7); MEAN CELL VOLUME 86.5 fl (80-96); MEAN PLT VOLUME 8.9 fl (7.5-11.1); NEUTROPHILS 74.4 % (42.8-82.8); RDW 15.4 % (11.6-15.6); WHITE BLOOD COUNT 11.7 K/mm3 (4.0-10.0)
[2016-10-20 08:18] LABS: CALCIUM 8.8 mg/dL (8.5-10.1); CREATININE 1.1 mg/dL (0.55-1.02)
--- NOTE | 2016-10-20 08:36 | PN ---
Progress Note (short form) - Note Progress Note: Ortho Pt seen and examined s/p right olecranon orif Selected Entries 10/20/16 06:00 Temperature 99.3 F Pulse Rate 72 Respiratory 20 Rate Blood Pressure 159/72 Laboratory Tests 10/19/16 10/20/16 06:38 06:30 WBC 11.7 H Hgb 8.6 L Hct 26.2 L Plt Count 168 splint intact, nvi a/p Maintain splint NWB R UE oob d/c planning
[2016-10-20] MEDS: SODIUM CHLORIDE 0.45% 1,000 ML IV SCH (10:20)
[2016-10-20 10:56] LABS: PLATELET ESTIMATE ADEQUATE (NORMAL)
[2016-10-20 11:03] LABS: PLATELET COUNT 201 K/MM3 (134-434)
[2016-10-20] MEDS ORDERED: PT OWN MED DRAWER 7, Y5N ONE ×2 (11:35→17:32)
[2016-10-20] MEDS: RANOLAZINE E.R. 500 MG TABLET (FP) PO SCH ×2 (11:37→22:55)
[2016-10-20] MEDS: PARoxetine HCL 20 MG TABLET (FP) PO SCH (11:37)
[2016-10-20] MEDS: ARIPiprazole 2 MG TABLET PO SCH (11:38)
--- NOTE | 2016-10-20 17:05 | PN ---
Physical Exam: SUBJECTIVE: Patient seen and examined. She was confused, slightly agitated. OBJECTIVE: Vital Signs Period Temp Pulse Resp BP Sys/Lui Pulse Ox Last 24 Hr 98.0 F-99.3 F 72-82 18-20 140-159/72-78 98-98 GENERAL: confused, slightly agitated, in no acute distress. HEAD: Normal with no signs of trauma. ENT: Ears normal, nares patent, oropharynx clear without exudates, moist mucous membranes. NECK: Trachea midline, full range of motion, supple. LUNGS: Breath sounds equal, clear to auscultation bilaterally, no wheezes, no crackles, no accessory muscle use. HEART: Regular rate and rhythm ABDOMEN: Soft, nontender, nondistended, normoactive bowel sounds, no guarding, no rebound, no hepatosplenomegaly, no masses. EXTREMITIES: fracture of olecranon process, right - s/p ORIF on 10/16/2016 NEUROLOGICAL: Normal speech, gait not observed. PSYCH: Agitaged SKIN: Warm, dry, normal turgor, no rashes or lesions noted Laboratory Results - last 24 hr 10/19/16 10/20/16 10/20/16 21:14 05:40 06:30 WBC 11.7 H RBC 3.03 L Hgb 8.6 L Hct 26.2 L MCV 86.5 MCHC 33.0 RDW 15.4 Plt Count 201 MPV 8.9 D Neutrophils % 74.4 Lymphocytes % 12.1 D Monocytes % 12.7 H Eosinophils % 0.2 Basophils % 0.6 Platelet Estimate Adequate Platelet Comment No clumping noted Sodium Potassium Chloride Carbon Dioxide Anion Gap BUN Creatinine POC Glucometer 179 67 Random Glucose Calcium Phosphorus Magnesium 10/20/16 10/20/16 06:30 11:57 WBC RBC Hgb Hct MCV MCHC RDW Plt Count MPV Neutrophils % Lymphocytes % Monocytes % Eosinophils % Basophils % Platelet Estimate Platelet Comment Sodium 141 Potassium 3.5 Chloride 105 Carbon Dioxide 27 Anion Gap 9 BUN 18 Creatinine 1.1 H POC Glucometer 149 Random Glucose 72 L D Calcium 8.8 Phosphorus 2.0 L D Magnesium 2.0 Active Medications Generic Name Dose Route Start Last Admin Trade Name Freq PRN Reason Stop Dose Admin Albuterol Sulfate 1 amp 10/17/16 07:25 10/19/16 10:20 Ventolin 0.083% Nebulizer Soln - NEB 1 amp Q4H PRN Administration SHORT OF BREATH/WHEEZING Alprazolam 0.25 mg 10/17/16 07:25 10/20/16 06:24 Xanax - PO 0.25 mg Q8H PRN Administration Aripiprazole 2 mg 10/17/16 10:00 10/20/16 11:38 Abilify PO 2 mg DAILY TITO Administration Buspirone HCl 10 mg 10/17/16 15:00 10/20/16 06:24 Buspar - PO 10 mg TID TITO Administration Sodium Chloride 1,000 mls @ 75 mls/hr 10/17/16 07:25 10/20/16 10:20 1/2 Normal Saline IV Not Given ASDIR [facility] Insulin Aspart 1 vial 10/16/16 22:00 10/20/16 11:58 Novolog Vial Sliding Scale - SQ Not Given ACHS [facility] Protocol Insulin Detemir 36 units 10/18/16 11:17 10/19/16 21:36 Levemir Vial SQ Not Given HS [facility] Levothyroxine Sodium 25 mcg 10/18/16 07:00 10/20/16 06:24 Synthroid - PO 25 mcg DAILY@0700 TITO Administration Oxycodone HCl 5 mg 10/17/16 07:25 10/19/16 21:44 Roxicodone - PO 5 mg Q4H PRN Administration PAIN Paroxetine HCl 30 mg 10/17/16 10:00 10/20/16 11:37 Paxil - PO 30 mg DAILY TITO Administration Potassium Phos/Sodium Phos 1 packet 10/18/16 14:00 10/20/16 06:25 Phos-Nak Packet - PO 1 packet TID TITO Administration Ranolazine 500 mg 10/17/16 10:00 10/20/16 11:37 Ranexa - PO 500 mg BID TITO Administration ASSESSMENT/PLAN: Patient is a 78 year old female with a significant past medical history of dementia, asthma, neurogenic bladder, anemia, depression, fibromyalgia and diabetes mellitus. She presented to the ER from [facility] on 2016 s/p fall and a righ olencranon fracture. She was seen by ortho and was taken to the OR for ORIF on 10/16/2016. Muscular/Skeletal S/P Fall Assessment/Plan: CT of head negative for bleed. Needs ongoing fall precautions PT consulted. Monitor safety Fracture of olecranon process of right extremity Assessment/Plan: S/p ORIF on 10/16/16 Ortho following Pulmonary: COPD - chronic Assessment/Plan: Albuterol as needed Not in any acute exacerbation Endocrine: Diabetes Mellitus Assessment/Plan: Continue diabetic diet, monitor BGMs, On Levemir Dementia: Assessment/Plan: Having periods of agitation Maintain safety, On Xanax PRN q8 On Abilify and Buspar F.E.N. Fluids: tolerating PO Electrolytes: low phos levels, on phos nak packet TID - monitor a.m. labs Nutrition: diabetic diet Prophylaxis: DVT: SCDs bilaterally GI: colace prn Disposition: Requires inpatient hospitalization. Full Code. Visit type - Emergency Visit Emergency Visit: Yes ED Registration Date: 10/15/16 Care time: The patient presented to the Emergency Department on the above date and was hospitalized for further evaluation of their emergent condition. - New Patient This patient is new to me today: Yes Date on this admission: 10/20/16 - Critical Care Critical Care patient: No - Discharge Referral Referred to [facility] Med [facility].C.: No
[2016-10-20] MEDS ORDERED: INSULIN (NOVOLOG) ASPART 100 UNITS/ML 10ML VIAL ONE ×2 (17:37→21:22)
--- NOTE | 2016-10-20 18:56 | CON.PSY ---
Psychiatry Consult Chief Complaint: Post op confusion Symptoms: reports: Memory Impairment - Previous Psychiatric Treatment Outpatient: None Inpatient: None - Previous Substance Abuse Treatment Outpatient: None Inpatient: None - Reason for Previous Treatment Reason for Previous Treatment: Major Depression - Current Medications Current Medications: Active Medications Albuterol Sulfate (Ventolin 0.083% Nebulizer Soln -) 1 amp NEB Q4H PRN PRN Reason: SHORT OF BREATH/WHEEZING Last Admin: 10/19/16 10:20 Dose: 1 amp Alprazolam (Xanax -) 0.25 mg PO Q8H PRN Last Admin: 10/20/16 06:24 Dose: 0.25 mg Buspirone HCl (Buspar -) 10 mg PO TID [facility] Last Admin: 10/20/16 15:43 Dose: 10 mg Sodium Chloride (1/2 Normal Saline) 1,000 mls @ 75 mls/hr IV ASDIR [facility] Last Admin: 10/20/16 10:20 Dose: Not Given Insulin Aspart (Novolog Vial Sliding Scale -) 1 vial SQ ACHS [facility] PRN Reason: Protocol Last Admin: 10/20/16 17:44 Dose: 1 units Insulin Detemir (Levemir Vial) 36 units SQ HS [facility] Last Admin: 10/19/16 21:36 Dose: Not Given Levothyroxine Sodium (Synthroid -) 25 mcg PO DAILY@0700 [facility] Last Admin: 10/20/16 06:24 Dose: 25 mcg Oxycodone HCl (Roxicodone -) 5 mg PO Q4H PRN PRN Reason: PAIN Last Admin: 10/19/16 21:44 Dose: 5 mg Potassium Phos/Sodium Phos (Phos-Nak Packet -) 1 packet PO TID [facility] Last Admin: 10/20/16 15:43 Dose: 1 packet Ranolazine (Ranexa -) 500 mg PO BID [facility] Last Admin: 10/20/16 11:37 Dose: 500 mg - Allergies Allergies: Allergies Allergy/AdvReac Type Severity Reaction Status Date / Time levofloxacin [From Levaquin] Allergy Unknown Rash Verified 10/15/16 17:30 Penicillins Allergy Unknown Verified 10/15/16 17:31 - Current Living Status Usual Living Arrangement: Half-Way - Current Mental Status Evaluation Appearance: Disheveled Attitude: Cooperative - Affect Affect: Constrictive Appropriateness: Not Appropriate - Mood Mood: Euthymic - Speech/Language Expressive: Delayed - Psychomotor Activity Psychomotor Activity: Slowed - Thought Process Thought Process: Loosening of Associations - Thought Content Hallucinations: Absent Delusions: Absent - Self Perception Self Perception: Depersonalization - Cognition Attention: Diminished Orientation: Time, Person, Place Memory, Immediate Recall: Impaired Memory, Short Term: 1/3 Memory, Remote with Promptin/3 - Concentration Serial Sevens Intact: No Simple Calculations Intact: No - Abstraction Proverb Interpretation: Impaired Judgement: Minimally Impaired - Insight Insight: Impaired - Impulse Control Impulse Control: Minimally Impaired - Suicidal Ideation Suicidal Ideation: No - Homicidal Ideation Homicidal Ideation: No Assessment/Plan d/c Abilify. reduce Paxil to 20mg po od.
[2016-10-20] MEDS: ALBUTEROL SO4 0.083% IH SOL 2.5 MG/3 ML VIAL.NEB. NEB PRN (21:40)
[2016-10-20] MEDS ORDERED: INSULIN DETEMIR 100 UNITS/ML MDV SQ ONE (21:43)
[2016-10-21] MEDS: NAPH,MB-DB/K PH,MBDB POWDER PACKET PO SCH ×2 (06:13→14:30)
[2016-10-21] MEDS: INSULIN SLIDING SCALE (NOVOLOG) 1 VIAL SQ SCH ×2 (06:14→11:02)
[2016-10-21] MEDS: LEVOTHYROXINE NA 25 MCG TABLET (FP) PO SCH (06:14)
[2016-10-21] MEDS: busPIRone HCL 10 MG TABLET (FP) PO SCH ×2 (06:14→14:30)
[2016-10-21 07:34] LABS: BASOPHIL 0.3 % (0-2.0); EOSINOPHIL 1.9 % (0-4.5); MCH 28.6 pg (25.7-33.7); MCHC 32.7 g/dl (32.0-36.0); MEAN CELL VOLUME 87.6 fl (80-96); NEUTROPHILS 63.7 % (42.8-82.8); PLATELET COUNT 224 K/MM3 (134-434); RDW 15.9 % (11.6-15.6); WHITE BLOOD COUNT 7.2 K/mm3 (4.0-10.0)
[2016-10-21 08:24] VITALS: BP 111/54
[2016-10-21 08:45] LABS: ALBUMIN 2.5 g/dl (3.4-5.0); BILIRUBIN,TOTAL 0.6 mg/dL (0.2-1.0); CALCIUM 8.3 mg/dL (8.5-10.1); CREATININE 1.1 mg/dL (0.55-1.02); PHOSPHOROUS 3.2 mg/dL (2.5-4.9); TOT PROT 5.8 g/dl (6.4-8.2)
[2016-10-21] MEDS ORDERED: PARoxetine HCL 20 MG TABLET (FP) PO SCH (10:00)
--- NOTE | 2016-10-21 10:21 | PN ---
Progress Note (short form) - Note Progress Note: Ortho Pt seen and examined s/p right olecranon orif Selected Entries 10/21/16 08:16 Temperature 98 F Pulse Rate 63 Respiratory 20 Rate Blood Pressure 111/54 splint intact, nvi a/p Maintain splint NWB R UE oob d/c planning
[2016-10-21] MEDS: SODIUM CHLORIDE 0.45% 1,000 ML IV SCH (10:45)
[2016-10-21] MEDS ORDERED: INSULIN (NOVOLOG) ASPART 100 UNITS/ML 10ML VIAL ONE (10:53)
[2016-10-21] MEDS: RANOLAZINE E.R. 500 MG TABLET (FP) PO SCH (10:56)
[2016-10-21 14:17] VITALS: PULSE 77; TEMP 98.7
--- NOTE | 2016-10-21 15:15 | DS ---
Physical Examination Vital Signs: Vital Signs Temperature 98.7 F 10/21/16 14:00 Pulse Rate 77 10/21/16 14:00 Respiratory Rate 18 10/21/16 14:00 Blood Pressure 111/54 10/21/16 08:16 O2 Sat by Pulse Oximetry (%) 98 10/21/16 10:25 Constitutional: Yes: Well Nourished, No Distress, Calm Cardiovascular: Yes: Regular Rate and Rhythm. No: Gallop, Murmur, Rub Respiratory: Yes: Regular, CTA Bilaterally. No: Rales, Rhonchi, Wheezes Gastrointestinal: Yes: Normal Bowel Sounds, Soft. No: Distention, Tenderness Extremities: Yes: Other (arm in cast) Edema: No Labs: CBC, BMP 10/21/16 06:10 10/21/16 06:10 Discharge Summary Reason For Visit: CLOSED FRACTURE OF RICHT OLECRANON PROCESS Current Active Problems Dementia (Acute) Fibromyalgia (Acute) Fracture of olecranon process, right, closed (Acute) Obesity (BMI 30.0-34.9) (Acute) Shortness of breath (Acute) Hospital Course: (1) Fall Code(s): W19.XXXA - UNSPECIFIED FALL, INITIAL ENCOUNTER Qualifiers: Encounter type: initial encounter Qualified Code(s): W19.XXXA - Unspecified fall, initial encounter (2) Fracture of olecranon process, right, closed Code(s): S52.021A - DISP FX OF OLECRAN PRO W/O INTARTIC EXTN RIGHT ULNA, INIT (3) COPD (chronic obstructive pulmonary disease) Code(s): J44.9 - CHRONIC OBSTRUCTIVE PULMONARY DISEASE, UNSPECIFIED (4) Diabetes mellitus Code(s): E11.9 - TYPE 2 DIABETES MELLITUS WITHOUT COMPLICATIONS Qualifiers: Diabetes mellitus type: type 2 Diabetes mellitus complication status: with ketoacidosis Diabetes mellitus complication detail: without coma (5) Hypothyroid Code(s): E03.9 - HYPOTHYROIDISM, UNSPECIFIED (6) Dementia Code(s): F03.90 - UNSPECIFIED DEMENTIA WITHOUT BEHAVIORAL DISTURBANCE Ms Frazier is a 81 year old female who came in with fall and fracture. She was admitted to the hospital. She was seen by Ortho and was taking to the OR. She tolerated an ORIF without problems. However she had post surgical confusion, her home medications were restarted and she appeared improved. She was seen by PT and eventually began to work with them. She had another episode of confusion , psychiatry saw the patient and recommendations reviewed and implemented. Currently she is safe for discharge to SNF 35 minutes spent in preparation of this discharge Condition: Stable - Instructions Diet, Activity, Other Instructions: Diabetic regular diet. Up with assistance, further activity per PT at SNF Referrals: Bryce Schmid MD [Primary Care Provider] - Bryce Eduardo MD [Staff Physician] - Disposition: HALF-WAY FACILITY - Home Medications Comprehensive Discharge Medication List: Ambulatory Orders Diltiazem HCl [Diltiazem 24Hr ER] 120 mg PO AM 05/04/13 Paroxetine HCl 20 mg PO DAILY tablet 05/04/13 Arformoterol Tartrate [Brovana] 15 mcg IH BID 07/10/13 Ezetimibe/Simvastatin [Vytorin 10-20 mg Tablet] 1 each PO DAILY tablet Levothyroxine Sodium [Synthroid] 25 mcg PO DAILY tablet 07/10/13 Montelukast Sodium [Singulair] 10 mg PO HS tablet 07/10/13 Pramipexole Di-HCl [Mirapex] 0.25 mg PO DAILY tablet 07/10/13 Tiotropium Beaver [Spiriva] 18 mcg IH 07/10/13 Buspirone HCl [Buspar -] 10 mg PO TID 12/17/15 Insulin (Levemir) [Levemir Vial] 26 unit SQ HS 12/17/15 Levothyroxine [Synthroid -] 25 mcg PO DAILY 12/17/15 Ranolazine [Ranexa] 500 mg PO BID 12/17/15 Albuterol 0.083% Nebulizer Tresa [Ventolin 0.083% Nebulizer Soln -] 1 amp NEB Q4H PRN #0 amp 12/20/15 Omeprazole [Prilosec] 20 mg PO BID 01/04/16 Insulin Sliding Scale [Novolog Vial Sliding Scale -] 5 units SQ TIDAC 09/12/16 Alprazolam [Xanax] 0.25 mg PO Q8H PRN #0 tablet MDD 1mg 09/14/16 Atorvastatin Ca [Lipitor] 20 mg PO HS 10/15/16 Oxybutynin Chloride [Oxybutynin Chloride ER] 15 mg PO DAILY 10/15/16 Insulin Sliding Scale [Novolog Vial Sliding Scale -] 1 vial SQ ACHS units 10/21 Oxycodone HCl [Roxicodone -] 5 mg PO Q4H PRN #0 tablet MDD 30mg 10/21/16
== END 2016-10-21 18:21 | DRG 512 ==
LOC: JER 17:12 → JERBED 19:47 → J6S 21:12
PROVIDERS: ADMIT Internal Medicine; ATTEND Internal Medicine
PROC: 0PSK04Z Reposition Right Ulna with Internal Fixation Device, Open Approach (ICD-10-PCS; principal; 2016-10-16 12:45)
DX: S52.021A Displaced fracture of olecranon process without intraarticular extension of right ulna, initial encounter for closed fracture (principal); W19.XXXA Unspecified fall, initial encounter; Y92.122 Bedroom in nursing home as the place of occurrence of the external cause; E11.9 Type 2 diabetes mellitus without complications; Z79.4 Long term (current) use of insulin; K21.9 Gastro-esophageal reflux disease without esophagitis; J44.9 Chronic obstructive pulmonary disease, unspecified; Z87.891 Personal history of nicotine dependence; E78.00 Pure hypercholesterolemia, unspecified; I10 Essential (primary) hypertension; F41.9 Anxiety disorder, unspecified; N39.3 Stress incontinence (female) (male); F03.90 Unspecified dementia, unspecified severity, without behavioral disturbance, psychotic disturbance, mood disturbance, and anxiety; M47.9 Spondylosis, unspecified; M79.7 Fibromyalgia; E03.9 Hypothyroidism, unspecified; N31.9 Neuromuscular dysfunction of bladder, unspecified; R45.1 Restlessness and agitation; R41.0 Disorientation, unspecified
CPT/HCPCS: 36415; 70450-TC; 71010-TC; 73060-TC-RT; 73070-TC-RT; 73090-TC-RT; 80048; 80053; 81003; 83735; 84100; 85025; 85610; 86850; 86900; 86901; 87040; 87086; 93005; 93010; 94640; 94760; 97116-GP; 97161-GP; 99285-25

== ENCOUNTER 2017-09-26 11:10 | Emergency (ER) | payer OTHER ==
--- NOTE | 2017-09-26 11:32 | PDOC ---
History of Present Illness - General Chief Complaint: Injury Stated Complaint: FALL Time Seen by Provider: 09/26/17 11:25 History Source: Patient - History of Present Illness Initial Comments: CHIEF COMPLAINT: 82 y/o afebrile female with PMH HTN, HLD, IDDM, dementia, anxiety, depression BIB EMS from [facility] for unwitnessed fall. HISTORY OF PRESENT ILLNESS: The patient has no recollection of falling but does point to the back of her head on the left side and her left hip when asked where her pain is. Her daughter is at bedside and reports no other symptoms over the past few days. Vital signs on arrival are within normal limits. REVIEW OF SYSTEMS: Provided by daughter and [place] records. GENERAL/CONSTITUTIONAL: No fever/chills. No weakness. +weight loss. HEAD, EYES, EARS, NOSE AND THROAT: No ear pain or discharge. No sore throat. CARDIOVASCULAR: No chest pain or shortness of breath. RESPIRATORY: No cough, wheezing, or hemoptysis. GASTROINTESTINAL: No vomiting, diarrhea, constipation. GENITOURINARY: No change in urination. MUSCULOSKELETAL: +left hip pain. +head pain. No neck or back pain. SKIN: No rash or easy bruising. PHYSICAL EXAM: GENERAL: The patient is awake, with somewhat vacant look, oriented to person, in NAD or obvious discomfort. HEAD: Normal with no signs of trauma. No hematomas. +minimal pain elicited with palpation of left occipital region. NECK: No midline cervical spine TTP or step offs. Full ROM of cervical spine. ENT: Pupils equal, round and reactive to light, extraocular movements intact, sclera anicteric, conjunctiva clear. No orbital swelling. No hemotympanum b/ l. Dried blood on bottom right lip with very faint horizontal abrasion noted. No gingival bleeding or loose teeth. LUNGS: Clear to auscultation bilaterally. Normal excursion. No respiratory distress or use of accessory muscles. CV: RRR, S1/S2, no MRG. Cap refill < 2 sec. ABDOMEN: Soft, non-distended, non-tender even to deep palpation, no hepatomegaly or splenomegaly, no masses. EXTREMITIES: Normal range of motion, no edema. No leg length discrepancy. + minimal pain elicited with palpation of left hip. Pelvis stable. NEUROLOGICAL: Slowed speech. Gait not assessed. SKIN: Warm, dry, no rashes or lesions noted. +decreased skin turgor. Past History - Past Medical History Allergies/Adverse Reactions: Allergies Allergy/AdvReac Type Severity Reaction Status Date / Time levofloxacin [From Levaquin] Allergy Unknown Rash Verified 09/26/17 11:20 Penicillins Allergy Unknown Verified 09/26/17 11:20 Home Medications: Ambulatory Orders Diltiazem HCl [Diltiazem 24Hr ER] 120 mg PO AM 05/04/13 Paroxetine HCl 20 mg PO DAILY tablet 05/04/13 Arformoterol Tartrate [Brovana] 15 mcg IH BID 07/10/13 Ezetimibe/Simvastatin [Vytorin 10-20 mg Tablet] 1 each PO DAILY tablet Levothyroxine Sodium [Synthroid] 25 mcg PO DAILY tablet 07/10/13 Montelukast Sodium [Singulair] 10 mg PO HS tablet 07/10/13 Pramipexole Di-HCl [Mirapex] 0.25 mg PO DAILY tablet 07/10/13 Tiotropium [place]olia [Spiriva] 18 mcg IH DAILY 07/10/13 Buspirone HCl [Buspar -] 10 mg PO TID 12/17/15 Insulin (Levemir) [Levemir Vial] 26 unit SQ HS 12/17/15 Levothyroxine [Synthroid -] 25 mcg PO DAILY 12/17/15 Ranolazine [Ranexa] 500 mg PO BID 12/17/15 Albuterol 0.083% Nebulizer Tresa [Ventolin 0.083% Nebulizer Soln -] 1 amp NEB Q4H PRN #0 amp 12/20/15 Omeprazole [Prilosec] 20 mg PO BID 01/04/16 Insulin Sliding Scale [Novolog Vial Sliding Scale -] 5 units SQ TIDAC 09/12/16 Alprazolam [Xanax] 0.25 mg PO Q8H PRN #0 tablet MDD 1mg 09/14/16 Atorvastatin Ca [Lipitor] 20 mg PO HS 10/15/16 Oxybutynin Chloride [Oxybutynin Chloride ER] 15 mg PO DAILY 10/15/16 Insulin Sliding Scale [Novolog Vial Sliding Scale -] 1 vial SQ ACHS units 10/21 Oxycodone HCl [Roxicodone -] 5 mg PO Q4H PRN #0 tablet MDD 30mg 10/21/16 Aa/Hydrolyzed Collagen, Whey [Lps Neutral Flavor Liquid] 30 ml PO BID 09/26/17 Aripiprazole [Abilify] 5 mg PO DAILY 09/26/17 Docusate Sodium [Colace] 200 mg PO BID 09/26/17 Menthol [Bengay] 1 applic TP DAILY 09/26/17 Oseltamivir Phosphate [Tamiflu] 75 mg PO DAILY 09/26/17 Prochlorperazine Maleate 5 mg PO Q6H PRN 09/26/17 Ranitidine HCl 150 mg PO HS 09/26/17 Anemia: No Asthma: No Cancer: No Cardiac Disorders: Yes (SOB) CVA: No COPD: Yes CHF: No Dementia: No Diabetes: Yes (IDDM) GI Disorders: Yes (GERD) Disorders: Yes (STRESS INCONTINENCE) HTN: Yes Hypercholesterolemia: Yes Liver Disease: No Psychiatric Problems: Yes (ANXIETY DISORDER) Seizures: No Thyroid Disease: Yes (HYPO) - Surgical History Abdominal Surgery: Yes Appendectomy: Yes Cardiac Surgery: No Cholecystectomy: No Lung Surgery: No Neurologic Surgery: No Orthopedic Surgery: Yes (R knee Sx) - Immunization History Td Vaccination: Yes Immunization Up to Date: Yes - Suicide/Smoking/Psychosocial Hx Smoking Status: Yes Smoking History: Former smoker Have you smoked in the past 12 months: No Number of Cigarettes Smoked Daily: 0 If you are a former smoker, when did you quit?: 2010 Information on smoking cessation initiated: No 'Breaking Loose' booklet given: 02/18/15 Hx Alcohol Use: No Drug/Substance Use Hx: No Substance Use Type: None Hx Substance Use Treatment: No Trauma Specific PMHX - Complaint Specific PMHX Arthritis: No Back Injury: No Neck Injury: Yes Hx Sacro Iliac Joint Dysfunction: No *Physical Exam - Vital Signs Last Vital Signs Temp Pulse Resp BP Pulse Ox 97.8 F 65 18 148/71 97 09/26/17 11:28 09/26/17 11:28 09/26/17 11:28 09/26/17 11:28 09/26/17 11:28 Heart Score/ECG Review - ECG Intrepretation Comment:: Twelve-lead EKG was performed and reviewed by Dr. Alcantar. There is normal sinus rhythm with a normal rate. Prolonged QT. Impression: Abnormal twelve-lead EKG ED Treatment Course - LABORATORY CBC & Chemistry Diagram: 09/26/17 11:56 09/26/17 11:56 Medical Decision Making - Medical Decision Making A/P: 82 y/o female with unwitnessed slip and fall in the [facility]. Plan is as follows: 1. EKG 2. Labs 3. IV fluids 4. Left hip/pelvis xray 5. Head CT Head CT IMPRESSION: No evidence of acute intracranial pathology. Left hip/pelvis xray IMPRESSION: No acute pathology. Spoke with Dr. Thomas, diamond sander for Dr. Tate, regarding her lab results. he is not concerned, would like her to have a 2nd bag of IV fluids and sent back to [facility]. Spoke with the patient and her daughter. Gave results and plan. Instructed the patient's daughter to bring her mother back if anything changes. The patient's daughter verbalizes understanding of all instructions, has no further questions and is awaiting discharge. *DC/Admit/Observation/Transfer Diagnosis at time of Disposition: Fall Qualifiers: Encounter type: initial encounter Qualified Code(s): W19.XXXA - Unspecified fall, initial encounter - Discharge Dispostion [facility]position[facility] Condition at time of disposition: Good - Referrals Referrals: Robert Tate MD [Primary Care Provider] - - Patient Instructions Printed Discharge Instructions: How to Prevent Falls Additional Instructions: Discharge Instructions: -Return to the ER with any worsening or concerning symptoms - Post Discharge Activity
[2017-09-26 11:35] VITALS: BMI 23.2
[2017-09-26] MEDS ORDERED: SODIUM CHLORIDE 1,000 ML IV STA ×2 (11:51→13:09)
[2017-09-26 12:15] LABS: BASO % 0.6 % (0-2.0); EOS % 0.7 % (0-4.5); HEMATOCRIT 37.5 % (32.4-45.2); HEMOGLOBIN 12.1 GM/dL (10.7-15.3); LYMPH % 19.7 % (8-40); MCH 30.4 pg (25.7-33.7); MCHC 32.1 g/dl (32.0-36.0); MEAN CELL VOLUME 94.6 fl (80-96); MEAN PLT VOLUME 7.2 fl (7.5-11.1); MONO % 13.5 % (3.8-10.2); NEUT % 65.5 % (42.8-82.8); PLATELET COUNT 205 K/MM3 (134-434); RBC 3.97 M/mm3 (3.60-5.2); RDW 13.9 % (11.6-15.6); WHITE BLOOD COUNT 6.8 K/mm3 (4.0-10.0)
[2017-09-26 12:45] LABS: ALBUMIN 3.4 g/dl (3.4-5.0); ANION GAP 8 (8-16); BILIRUBIN,TOTAL 0.5 mg/dL (0.2-1.0); BLOOD UREA NITROGEN 27 mg/dL (7-18); CALCIUM 9.2 mg/dL (8.5-10.1); CHLORIDE 103 mmol/L (98-107); CO2 27 mmol/L (21-32); CREATININE 1.7 mg/dL (0.55-1.02); GLUCOSE,RANDOM 195 mg/dL (74-106); POTASSIUM 4.4 mmol/L (3.5-5.1); SGOT/AST 31 U/L (15-37); SGPT/ALT 23 U/L (12-78); SODIUM 138 mmol/L (136-145); TOT PROT 6.9 g/dl (6.4-8.2)
[2017-09-26 12:47] LABS: ALK PHOS 79 U/L (45-117)
[2017-09-26 15:10] LABS: URINE APPEARANCE CLEAR; URINE BILIRUBIN NEGATIVE (NEGATIVE); URINE BLOOD NEGATIVE (NEGATIVE); URINE COLOR YELLOW; URINE GLUCOSE (UA) NEGATIVE (NEGATIVE); URINE KETONE NEGATIVE (NEGATIVE); URINE LEUK ESTERASE TRACE (NEGATIVE); URINE NITRITE NEGATIVE (NEGATIVE); URINE PROTEIN NEGATIVE (NEGATIVE); URINE UROBILINOGEN NEGATIVE mg/dL (0.2-1.0)
[2017-09-26 15:35] LABS: EPI CELLS RARE /HPF (FEW); URINE HYALINE CAST 20 /lpf
[2017-09-26 15:53] VITALS: BP 131/63; PULSE 54; TEMP 96.4
--- NOTE | 2017-09-26 16:04 | EKG ---
Test Reason : Blood Pressure : / mmHG Vent. Rate : 067 BPM Atrial Rate : 067 BPM P-R Int : 128 ms QRS Dur : 094 ms QT Int : 466 ms P-R-T Axes : 071 022 064 degrees QTc Int : 492 ms NORMAL SINUS RHYTHM LOW VOLTAGE QRS INCOMPLETE RIGHT BUNDLE BRANCH BLOCK PROLONGED QT ABNORMAL ECG WHEN COMPARED WITH ECG OF 15-OCT-2016 18:00, NO SIGNIFICANT CHANGE WAS FOUND Confirmed by Edward Tucker ([id number]) on 09/26/2017 4:03:58 PM Referred By: Confirmed By:Edward Tucker
[2017-09-26] MEDS ORDERED: ALPRAZolam 0.25 MG TABLET PO ONE (16:29)
[2017-09-26] MEDS ORDERED: ALPRAZolam 0.25 MG TABLET ONE (16:29)
[2017-09-26] MEDS ORDERED: LORazepam 2 MG/ML SDV VIAL ONE (16:40)
== END 2017-09-26 16:56 ==
LOC: JER 11:10
PROC: 3E0337Z Introduction of Electrolytic and Water Balance Substance into Peripheral Vein, Percutaneous Approach (ICD-10-PCS; principal; 2017-09-26)
PROC: 3E033NZ Introduction of Analgesics, Hypnotics, Sedatives into Peripheral Vein, Percutaneous Approach (ICD-10-PCS; 2017-09-26)
DX: S09.8XXA Other specified injuries of head, initial encounter (principal); S00.511A Abrasion of lip, initial encounter; M25.552 Pain in left hip; W19.XXXA Unspecified fall, initial encounter; Y93.89 Activity, other specified; Y92.128 Other place in nursing home as the place of occurrence of the external cause; Y99.8 Other external cause status; I10 Essential (primary) hypertension; E78.00 Pure hypercholesterolemia, unspecified; E11.9 Type 2 diabetes mellitus without complications; Z79.84 Long term (current) use of oral hypoglycemic drugs; E03.9 Hypothyroidism, unspecified; F41.9 Anxiety disorder, unspecified; K21.9 Gastro-esophageal reflux disease without esophagitis; N39.3 Stress incontinence (female) (male)
CPT/HCPCS: 36415; 70450-TC; 73523-TC; 80053; 81003; 81015; 82550; 82553; 84484; 85025; 87086; 93005; 93010; 96361; 96374; 99283-25

== ENCOUNTER 2017-10-25 04:58 | Emergency (ER) | payer OTHER ==
[2017-10-25 05:13] VITALS: BMI 21.4
--- NOTE | 2017-10-25 05:42 | PDOC ---
History of Present Illness - General History Source: Patient Exam Limitations: No Limitations - History of Present Illness Initial Comments: 10/25/17 06:01 Patient is a 82 year old female from, with a significant past medical history of Dementia, HTN, Asthma, COPD, CLAUDIA. rectal prolapse, Neurogenic Bladder, Anemia ,Anxiety, Depression, Chronic low back pain, Bursitis, Osteoarthritis, Fibromyalgia, Diabetes Mellitus who presents to the ED with complaints of suspected fall that occurred just prior to ED arrival. As per [facility] staff, patient was found in her room on the floor. Patient is currently slightly bleeding from behind head here in the ED. Patient is a poor historian secondary to psychiatric condition. Allergies: Levaquin, Penicillin Social history: Surgical history: ORIF PMD: Dr. Bryce Schmid <Siva Shaw - Last Filed: 10/25/17 06:01> <Josefa Yates - Last Filed: 10/25/17 06:34> - General Chief Complaint: Injury Stated Complaint: FALL Time Seen by Provider: 10/25/17 05:02 Past History <Siva Shaw - Last Filed: 10/25/17 06:01> - Past Medical History Anemia: No Asthma: No Cancer: No Cardiac Disorders: Yes (SOB) CVA: No COPD: Yes CHF: No Dementia: No Diabetes: Yes (IDDM) GI Disorders: Yes (GERD) Disorders: Yes (STRESS INCONTINENCE) HTN: Yes Hypercholesterolemia: Yes Liver Disease: No Psychiatric Problems: Yes (ANXIETY DISORDER) Seizures: No Thyroid Disease: Yes (HYPO) - Surgical History Abdominal Surgery: Yes Appendectomy: Yes Cardiac Surgery: No Cholecystectomy: No Lung Surgery: No Neurologic Surgery: No Orthopedic Surgery: Yes (R knee Sx) - Immunization History Td Vaccination: Yes Immunization Up to Date: Yes - Suicide/Smoking/Psychosocial Hx Smoking Status: Yes Smoking History: Unknown if ever smoked Have you smoked in the past 12 months: No Number of Cigarettes Smoked Daily: 0 If you are a former smoker, when did you quit?: 2010 Information on smoking cessation initiated: No 'Breaking Loose' booklet given: 02/18/15 Hx Alcohol Use: No Drug/Substance Use Hx: No Substance Use Type: None Hx Substance Use Treatment: No <Josefa Yates - Last Filed: 10/25/17 06:34> - Past Medical History Allergies/Adverse Reactions: Allergies Allergy/AdvReac Type Severity Reaction Status Date / Time levofloxacin [From Levaquin] Allergy Unknown Rash Verified 10/25/17 05:02 Penicillins Allergy Unknown Verified 10/25/17 05:02 Home Medications: Ambulatory Orders Aa/Hydrolyzed Collagen, Whey [Lps Neutral Flavor Liquid] 960 ml PO BID 10/25/17 Acetaminophen [Tylenol] 650 mg PO QID PRN 10/25/17 Alprazolam [Xanax] 0.25 mg PO BID 10/25/17 Aripiprazole [Abilify -] 2.5 mg PO HS 10/25/17 Aripiprazole [Abilify] 5 mg PO DAILY 10/25/17 Ascorbic Acid [Vitamin C -] 500 mg PO BID 10/25/17 Atorvastatin Calcium [Lipitor] 20 mg PO DAILY 10/25/17 Buspirone HCl [Buspar -] 10 mg PO TID 10/25/17 Cholecalciferol (Vitamin D3) [Vitamin D3 -] 1,000 unit PO DAILY 10/25/17 Diltiazem [Cardizem -] 120 mg PO DAILY 10/25/17 Docusate Sodium [Colace] 200 mg PO DAILY 10/25/17 Ferrous Sulfate 325 mg PO BID 10/25/17 Insulin (LOG) Aspart [NovoLOG -] 0 units SQ AC 10/25/17 Insulin Detemir [Levemir Flextouch] 22 unit SQ HS 10/25/17 Ipratropium 0.02% Nebulizer [Atrovent] 1 neb NEB TID 10/25/17 Montelukast Na [Singulair -] 10 mg PO HS 10/25/17 Olodaterol HCl [Striverdi Respimat] 4 gm IH DAILY 10/25/17 Paroxetine HCl [Paxil -] 1 tab PO DAILY 10/25/17 Pramipexole Dihydrochloride [Mirapex -] 0.25 mg PO DAILY 10/25/17 Prochlorperazine 5 mg PO QID PRN 10/25/17 Ranitidine HCl [Acid Control] 150 mg PO HS 10/25/17 Review of Systems - Review of Systems Able to Perform ROS?: No Comments:: 10/25/17 06:01 ROS unobtainable due to patients psychiatric condition. <Siva Shaw - Last Filed: 10/25/17 06:01> *Physical Exam - Vital Signs Last Vital Signs Temp Pulse Resp BP Pulse Ox 97.9 F 78 28 H 119/66 100 10/25/17 05:02 10/25/17 05:02 10/25/17 05:02 10/25/17 05:02 10/25/17 05:02 - Physical Exam Comments: 10/25/17 06:01 GENERAL: Awake, alert, and fully oriented, in no acute distress HEAD: No signs of trauma EYES: PERRLA, EOMI, sclera anicteric, conjunctiva clear ENT: Auricles normal inspection, hearing grossly normal, nares patent, oropharynx clear without exudates. Moist mucosa NECK: Normal ROM, supple, no lymphadenopathy, JVD, or masses LUNGS: Breath sounds equal, clear to auscultation bilaterally. No wheezes, and no crackles HEART: Regular rate and rhythm, normal S1 and S2, no murmurs, rubs or gallops ABDOMEN: Soft, nontender, normoactive bowel sounds. No guarding, no rebound. No masses EXTREMITIES: Normal range of motion, no edema. No clubbing or cyanosis. No cords, erythema, or tenderness NEUROLOGICAL: Cranial nerves II through XII grossly intact. Normal speech, normal gait SKIN: Warm, Dry, normal turgor, no rashes or lesions noted. <Siva Shaw - Last Filed: 10/25/17 06:01> - Vital Signs Last Vital Signs Temp Pulse Resp BP Pulse Ox 97.9 F 78 28 H 119/66 100 10/25/17 05:02 10/25/17 05:02 10/25/17 05:02 10/25/17 05:02 10/25/17 05:02 <Josefa Yates - Last Filed: 10/25/17 06:34> ED Treatment Course - Medications Given in the ED: ED Medications Discontinued Medications Generic Name Dose Route Start Last Admin Trade Name Freq PRN Reason Stop Dose Admin Diphenhydramine HCl 50 mg 10/25/17 05:43 10/25/17 05:56 Benadryl Injection - IVPB 10/25/17 05:44 50 mg ONCE ONE Administration Haloperidol 5 mg 10/25/17 05:43 10/25/17 05:56 Haldol Injection (Fast Acting) - IM 10/25/17 05:44 5 mg ONCE ONE Administration Lorazepam 2 mg 10/25/17 05:43 10/25/17 05:56 Ativan Injection - IM 10/25/17 05:44 2 mg ONCE ONE Administration <Siva Shaw - Last Filed: 10/25/17 06:01> Medical Decision Making - Medical Decision Making 10/25/17 06:33 Pt fell at the [facility] and she has an occipital lac. Pt is noncomplaint with exam and pushing me away. Exam is normal. HEENT normal , occipital 1 cm lac. Pt has mild neck tenderness. She is awake, but seems demented. Pt will be treated with haldol, ativan and benadryl and then she will be sent for CT head and C spine and she will require stapling of her laceration. <Josefa Yates - Last Filed: 10/25/17 06:34> *DC/Admit/Observation/Transfer - Attestations Scribe Attestion: 10/25/17 06:01 Documentation prepared by Siva Shaw, acting as medical health researcher for Josefa Yates MD/DO. <Siva Shaw - Last Filed: 10/25/17 06:01>
[2017-10-25] MEDS ORDERED: HALOPERIDOL LACTATE 5 MG/ML IM ONE (05:43)
[2017-10-25] MEDS ORDERED: LORazepam 2 MG/ML SDV VIAL ONE (05:49)
[2017-10-25] MEDS ORDERED: HALOPERIDOL LACTATE 5 MG/ML ONE (05:49)
--- NOTE | 2017-10-25 08:00 | PDOC ---
*Physical Exam - Vital Signs Last Vital Signs Temp Pulse Resp BP Pulse Ox 97.9 F 78 28 H 119/66 100 10/25/17 05:02 10/25/17 05:02 10/25/17 05:02 10/25/17 05:02 10/25/17 05:02 ED Treatment Course - Medications Given in the ED: ED Medications Discontinued Medications Generic Name Dose Route Start Last Admin Trade Name Guevara PRN Reason Stop Dose Admin Diphenhydramine HCl 50 mg 10/25/17 05:43 10/25/17 05:56 Benadryl Injection - IVPB 10/25/17 05:44 50 mg ONCE ONE Administration Haloperidol 5 mg 10/25/17 05:43 10/25/17 05:56 Haldol Injection (Fast Acting) - IM 10/25/17 05:44 5 mg ONCE ONE Administration Lorazepam 2 mg 10/25/17 05:43 10/25/17 05:56 Ativan Injection - IM 10/25/17 05:44 2 mg ONCE ONE Administration Medical Decision Making - Medical Decision Making Wound repaired in ED. CTH obtained, no acute findings. Stable for DC back to [place]. *DC/Admit/Observation/Transfer Diagnosis at time of Disposition: Head injury Qualifiers: Encounter type: initial encounter Qualified Code(s): S09.90XA - Unspecified injury of head, initial encounter - Discharge Dispostion Disposition: [facility] Condition at time of disposition: Stable Admit: No - Referrals - Patient Instructions Printed Discharge Instructions: DI for Closed Head Injury Additional Instructions: RETURN TO THE ER BETWEEN 11/01-11/04 TO HAVE KELLEE REMOVED - Post Discharge Activity Procedures - Laceration/Wound Repair Posterior Head Wound Length: to 2.5 cm Wound Explored: clean, no foreign body present Wound's Depth, Shape: superficial Wound Repaired With: Kellee Number of Sutures: 2
[2017-10-25 10:01] VITALS: BP 106/53; PULSE 80; TEMP 97.1
== END 2017-10-25 10:03 ==
LOC: JER 04:58
PROC: 0HQ0XZZ Repair Scalp Skin, External Approach (ICD-10-PCS; principal; 2017-10-25)
PROC: 3E023NZ Introduction of Analgesics, Hypnotics, Sedatives into Muscle, Percutaneous Approach (ICD-10-PCS; 2017-10-25)
PROC: 3E023NZ Introduction of Analgesics, Hypnotics, Sedatives into Muscle, Percutaneous Approach (ICD-10-PCS; 2017-10-25)
PROC: 3E033GC Introduction of Other Therapeutic Substance into Peripheral Vein, Percutaneous Approach (ICD-10-PCS; 2017-10-25)
DX: S01.01XA Laceration without foreign body of scalp, initial encounter (principal); W18.39XA Other fall on same level, initial encounter; Y93.89 Activity, other specified; Y92.122 Bedroom in nursing home as the place of occurrence of the external cause; Y99.8 Other external cause status; I10 Essential (primary) hypertension; E11.9 Type 2 diabetes mellitus without complications; E03.9 Hypothyroidism, unspecified; J45.909 Unspecified asthma, uncomplicated; J44.9 Chronic obstructive pulmonary disease, unspecified; F41.8 Other specified anxiety disorders; G47.33 Obstructive sleep apnea (adult) (pediatric); N31.9 Neuromuscular dysfunction of bladder, unspecified; M19.90 Unspecified osteoarthritis, unspecified site; Z87.891 Personal history of nicotine dependence
CPT/HCPCS: 12001; 70450-TC; 72125-TC; 96372; 96374; 99282-25